=== PATIENT | male | born 1965 | race Caucasian/White ===

== ENCOUNTER 2025-03-04 10:00 | Emergency (ER) | payer BC, SELFPAY ==
[2025-03-04 10:03] VITALS: BP 140/85; PULSE 65; TEMP 36.6; O2SAT 95; BMI 28.6
[2025-03-04 10:10] VITALS: O2SAT 95
[2025-03-04] MEDS: SILVER NITRATE APPLICATOR STICK 1 APPLIC TOPICAL (10:18)
--- NOTE | 2025-03-04 10:35 | ED.GENADUL1 ---
HPI HPI - General Adult General Chief complaint: Epistaxis Stated complaint: EPISTAXIS Time Seen by Provider: 03/04/25 10:06 Source: patient Mode of arrival: walk-in Limitations: no limitations History of Present Illness HPI narrative: 59-year-old male presents to the emergency department for nosebleed. It started an hour and a half ago and was not precipitated by trauma and is only on the left side. He put a napkin in there and it seems to have slowed down or stopped. He is on a blood thinner, does not know which one. He does not know his medications. Related Data Home Medications ?Medication ?Instructions ?Recorded ?Confirmed albuterol sulfate 90 mcg/actuation 2 puff inhalation Q6H PRN 03/04/25 03/04/25 aerosol inhaler shortness of breath or wheezing aspirin 81 mg tablet,delayed 81 mg PO DAILY 03/04/25 03/04/25 release atorvastatin 80 mg tablet 80 mg PO QPM 03/04/25 03/04/25 carvedilol 3.125 mg tablet 3.125 mg PO BID 03/04/25 03/04/25 clopidogrel 75 mg tablet 75 mg PO DAILY 03/04/25 03/04/25 hydralazine 25 mg tablet 25 mg PO BID 03/04/25 03/04/25 ipratropium 20 mcg-albuterol 100 2 puff inhalation Q6H PRN 03/04/25 03/04/25 mcg/actuation mist for inhalation shortness of breath or wheezing (Combivent Respimat) isosorbide mononitrate 30 mg 30 mg PO DAILY 03/04/25 03/04/25 tablet,extended release 24 hr nifedipine 60 mg tablet,extended 60 mg PO DAILY 03/04/25 03/04/25 release 24 hr pantoprazole 40 mg tablet,delayed 40 mg PO DAILY 03/04/25 03/04/25 release sacubitril 24 mg-valsartan 26 mg 1 tab PO BID 03/04/25 03/04/25 tablet (Entresto) spironolactone 25 mg tablet 12.5 mg PO DAILY 03/04/25 03/04/25 tiotropium bromide 2.5 2 puff inhalation DAILY 03/04/25 03/04/25 mcg/actuation mist for inhalation (Spiriva Respimat) Allergies Allergy/AdvReac Type Severity Reaction Status Date / Time No Known Drug Allergies Allergy Verified 03/04/25 10:02 Review of Systems ROS Narrative A ten point review of systems is negative except as noted above. PFSH PFSH Medical History (Updated 03/04/25 @ 10:55 by Tj Chong MD) CHF (congestive heart failure) ?I50.9 - Heart failure, unspecified (ICD-10) Epistaxis ?R04.0 - Epistaxis (ICD-10) Myocardial infarct ?I21.9 - Acute myocardial infarction, unspecified (ICD-10) GERD (gastroesophageal reflux disease) ?K21.9 - Gastro-esophageal reflux disease without esophagitis (ICD-10) Emphysema lung ?J43.9 - Emphysema, unspecified (ICD-10) COPD (chronic obstructive pulmonary disease) ?J44.9 - Chronic obstructive pulmonary disease, unspecified (ICD-10) Surgical History (Updated 03/04/25 @ 10:14 by Jess Smith) H/O heart artery stent ?Z95.5 - Presence of coronary angioplasty implant and graft (ICD-10) Social History Little interest or pleasure in doing things: not at all Feeling down, depressed, or hopeless: not at all Exam Narrative Exam Narrative: Nurses note and vital signs reviewed and patient is not hypoxic. General: The patient appears well and in no apparent distress. Patient is resting comfortably on cart. Skin: Warm, dry, no pallor noted. There is no rash noted. Head: Normocephalic, atraumatic Eye: Normal conjunctiva, no drainage Ears, Nose, Mouth, and Throat: oral mucosa is moist. Nares patent. No current epistaxis. There is some blood in the left nares. Cardiovascular: Regular Rate and Rhythm Respiratory: Patient is in no distress, no accessory muscle use, lungs are clear to auscultation, no wheezing, rales or rhonchi Back: non-tender GI: Soft and nontender Musculoskeletal: All joints have full range of motion Neurological: A&O, normal speech Psychiatric: Cooperative Constitutional Vital Signs, click to edit/add: Last Vital Signs Temp 97.8 F 03/04/25 10:03 Pulse 65 03/04/25 10:03 Resp 20 03/04/25 10:03 BP 140/85 03/04/25 10:03 Pulse Ox 95 03/04/25 10:10 O2 Del Method Room Air 03/04/25 10:10 Course Vital Signs Vital signs: Vital Signs Temperature 97.8 F 03/04/25 10:03 Pulse Rate 65 03/04/25 10:03 Respiratory Rate 20 03/04/25 10:03 Blood Pressure 140/85 03/04/25 10:03 Pulse Oximetry 95 03/04/25 10:03 Oxygen Delivery Method Room Air 03/04/25 10:03 Temperature 97.8 F 03/04/25 10:03 Pulse Rate 65 03/04/25 10:03 Respiratory Rate 20 03/04/25 10:03 Blood Pressure 140/85 03/04/25 10:03 Pulse Oximetry 95 03/04/25 10:10 Oxygen Delivery Method Room Air 03/04/25 10:10 Medical Decision Making MDM Narrative Medical decision making narrative: The following procedure was performed by me. Left nares cauterization with silver nitrate was carried out with no complications. He tolerated the procedure well. No further bleeding occurred and he is able to be discharged home. Treatment diagnosis and follow-up were discussed with the patient. Discharge Plan Discharge Chief Complaint: Epistaxis Clinical Impression: Epistaxis Patient Disposition: Home, Self-Care Time of Disposition Decision: 10:55 Condition: Good Mode of Transportation: Private Vehicle Prescriptions / Home Meds: No Action albuterol sulfate 90 mcg/actuation HFA aerosol inhaler 2 puff INHALATION Q6H PRN (Reason: shortness of breath or wheezing) aspirin 81 mg tablet,delayed release (DR/EC) 81 mg PO DAILY atorvastatin 80 mg tablet 80 mg PO QPM carvedilol 3.125 mg tablet 3.125 mg PO BID clopidogrel 75 mg tablet 75 mg PO DAILY hydralazine 25 mg tablet 25 mg PO BID Combivent Respimat 20-100 mcg/actuation mist 2 puff INHALATION Q6H PRN (Reason: shortness of breath or wheezing) isosorbide mononitrate 30 mg tablet extended release 24 hr 30 mg PO DAILY nifedipine 60 mg tablet extended release 24hr 60 mg PO DAILY pantoprazole 40 mg tablet,delayed release (DR/EC) 40 mg PO DAILY Entresto 24-26 mg tablet 1 tab PO BID spironolactone 25 mg tablet 12.5 mg PO DAILY Spiriva Respimat 2.5 mcg/actuation mist 2 puff INHALATION DAILY Print Language: Ukrainian Instructions: Nosebleed (ED) Referrals: RUPERT MARSHALL [Primary Care Provider, Family Practice] - 1 week
== END 2025-03-04 11:43 | disposition home or self-care (01) ==
PROVIDERS: Emergency Provider Emergency Medicine; PCP Family Medicine
DX: R04.0 Epistaxis (principal); Z95.5 Presence of coronary angioplasty implant and graft
CPT/HCPCS: 30901; 99283

== ENCOUNTER 2025-03-07 09:05 | Emergency (ER) | payer BC, SELFPAY ==
--- OUTSIDE RECORDS SUMMARY | 2025-02-19 21:46 | XMS_ITS | Encounter Summary ---
Author Organization [facility] Address [address] [place] [address] Phone Care Team Providers Care Bell Spinner Sousaphones Name Role Phone Winston Paul DO Primary Care Provider [phone] Reason for Referral * Medications - Pending Review Specialty Diagnoses / Procedures Referred By Carline silveira Referred To Contact Diagnoses Chronic systolic heart failure Lizbet Aguirre MD [address] [place] [address] Phone: tel: fax: Referral ID Status Reason Start Date Expiration Date V isits Requested Visits Authorized [id number] Pending Review 1 Reason for Visit * Reason Comments Shortness of Breath Haven't felt right s feli I got the heart stent a month ago. I saw my doctor and went to the ER in [place], they wanted me to stay but I said no, I wanted a second opinion. They said my oxygen was only 81 or 82%. * Auth/Cert Specialty Diagnoses / Procedures Referred By Contpia t Referred To Contact Diagnoses Acute hypoxic respiratory failure Procedures ER ADMIT Loi Golden MD [address] [place] [address] Phone: tel: fax: [facility] Emergency Medicine [address] [place] [address] Phone: tel: fax: Referral ID Status Reason Start Date Expiration Date Visits Re quested Visits Authorized [id number] 1 1 Encounter Details Date Type Department Care Team (Late st Contact Info) Description 02/19/2025 9:46 PM EDT - 02/21/2025 4:35 PM EDT Hospital Encounter [facility] 8 Cardiac Intensive Care [address] [place] [phone] [place] [id number] [address] Department [place] [address] Loi Golden MD [address], [place] [id number] Lizbet Aguirre MD [address], [place] [id number] Acute hypoxic respiratory failure (Primary Dx); Hypoxia; Dyspnea, unspecified type; Chronic systolic heart failure; Coronary artery disease with history of percutaneous transluminal angioplasty (PTCA); Chronic obstructive pulmonary disease, unspecified COPD type (Multi) Discharge Disposition: Home Social History Tobacco Use Types Packs/Day Years Used Date Smoking Tobacco: Never Assessed AUDIT-C Answer Date Recorded Q1: How often do you have a drink containing alcohol? Never 02/20/2025 Q2: How many drinks containi ng alcohol do you have on a typical day when you are drinking? Patient does not drink Q3: How often do you have si x or more drinks on one occasion? Never 02/20/2025 PHQ-2 Answer Date Recorded Patient Health Questionnaire-2 Score 0 02/20/2025 Sex and Gender Information Value Date Recorded Sex Assigned at Not on file Legal Sex Male 9:07 PM EST Gender Identity Not on file Sexual Orientation Not on file documented as of this encounter Last Filed Vital Signs Vital Sign Reading Time Taken Comments Blood Pressure 137/75 02/21/2025 11:03 AM EDT Pulse 54 02/21/2025 11:03 AM EDT Temperature 36.1 C (97 F) 02/21/2025 11:03 AM EDT Respiratory Rate 18 02/21/2025 11:0 3 AM EDT Oxygen Saturation 94% 02/21/2025 1:04 PM EDT Inhaled Oxygen Concentration - - Weight 88.4 kg (194 lb 14.2 oz) 02/21/2025 7:00 AM EDT Height 180.3 cm (5' 11 ) 02/20/2025 2:14 AM EDT Body Mass Index 27.18 02/20/2025 2:14 AM EDT documented in this encounter Functional Status * Audit-C Score Answer Date of Assessment Author 0 02/20/2025 2:29 AM EDT Summer Denise RN * Question Answer Date of Assessment Author Q1: How often do you have a drink containing alcohol? Never 02/20/2025 2:29 AM EDT Summer Denise RN Q2: How many drinks containing alcohol do you have on a typical day when you are drinking? Patient does not drink 02/20/2025 2:29 AM EDT Summer Denise RN Q3: How often do you have six or more drinks on one occasion? Never 02/20/2025 2:29 AM EDT Summer Denise RN * Over the past 2 weeks, how often have you been bothered by any of the following problems? Question Answer Date of Assessment Author Patient Health Questionnaire -2 Score 0 02/20/2025 2:29 AM BINGT Summer Denise RN * Calculated C-SSRS Risk Score (Lifetime/Recent) Answer Date of Assessment Author No Risk Indicated 02/19/2025 9:34 PM EDT Nuvia Lara RN * [place] Suicide Severity Rating Scale (Screener/Recent Self-Report) Question Answer Date of Assessment Author 1. Wish to be (Past 1 Month) No 02/19/2025 9:34 PM BINGT Ismael Wyatt RN 2. Non-Specific Active Suici sejal Thoughts (Past 1 Month) No 02/19/2025 9:34 PM BINGT Shani Wyatt RN 6. 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 carvedilol 3.125 mg tablet; Commonly known as: Coreg; Take 1 tablet (3.125 mg) by mouth 2 times a day. clopidogrel 75 mg tablet; Commonly known as: Plavix; Take 1 tablet (75 mg) by mouth once daily.; Start taking on: February 22, 2025 empagliflozin 10 mg tablet; Commonly known as: Jardiance; Take 1 tablet (10 mg) by mouth once daily.; Start taking on: February 22, 2025 ipratropium-albuteroL 20-100 mcg/actuation inhaler; Commonly known as: Combivent Respimat; Inhale 2 puffs 4 times a day as needed for wheezing. sacubitriL-valsartan 24-26 mg tablet; Commonly known as: Entresto; Take 1 tablet by mouth 2 times a day. spironolactone 25 mg tablet; Commonly known as: Aldactone; Take 0.5 tablets (12.5 mg) by mouth once daily.; Start taking on: February 22, 2025 tiotropium 2.5 mcg/actuation inhaler; Commonly known as: Spiriva Respimat; Inhale 2 puffs once daily.; Start taking on: February 22, 2025 Test Results Pending At Discharge Pending Labs Order Current Status Extra Tubes Preliminary result Light Blue Top Preliminary result Hospital Course 59 y.o. 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 #. Acute hypoxic respiratory failure #. COPD #. Lactic acidosis Seen and examined Clinically better No SOB No chest pain Seen by Cardiology Seen by Pulmonary Home O2 eval Ok from cardiology to DC Entresto BID PO Aldactone Po daily Jardiance daily PO Albuterol Inhaler Medrol Dose pack at DC Follow up with Pulmonary as outpatient #. Chronic combined systolic and diastolic heart failure, NYHA Class II - Echo at [facility] reportedly showed EF 45% and grade I diastolic impairment, however clinically does not appear floridly volume overloaded, additionally no signs of volume overload on CT - Likely Class II - III NYHA given limited physical activity resulting in DILLON and fatigue Entresto BID PO Aldactone Po daily Jardiance daily PO #. CAD s/p PTCA #. Essential hypertension - Recent PCI to mid LAD (12/2024), no reported chest pain, EKG does show ST-T changes in inferior, anterior, and inferior leads - Continuing home aspirin, Plavix, atorvastatin, coreg #. CKD stage IIIa - Unclear baseline but appears to be improved from labs at [facility] - Monitor #. Type 2 diabetes with hyperglycemia Resume home metformin - Check A1C - SSI, Accu-Cheks, hypoglycemic protocol #. Thrombocytopenia - Reportedly chronic per limited chart review - Outpatient follow up VTE PPX: Lovenox/SCDs Pertinent Physical Exam At Time of Discharge Physical Exam Vitals and nursing note reviewed. Constitutional: Appearance: Normal appearance. HENT: Head: Normocephalic and atraumatic. Mouth/Throat: Mouth: Mucous membranes are dry. Eyes: Extraocular Movements: Extraocular movements intact. Pupils: Pupils are equal, round, and reactive to light. Cardiovascular: Rate and Rhythm: Normal rate and regular rhythm. Pulses: Normal pulses. Heart sounds: Normal heart sounds. Pulmonary: Effort: Pulmonary effort is normal. Breath sounds: Normal breath sounds. Abdominal: General: Abdomen is flat. Bowel sounds are normal. Palpations: Abdomen is soft. Musculoskeletal: General: Normal range of motion. Cervical back: Normal range of motion and neck supple. Skin: General: Skin is warm. Neurological: General: No focal deficit present. Mental Status: He is alert and oriented to person, place, and time. Mental status is at baseline. Psychiatric: Mood and Affect: Mood normal. Behavior: Behavior normal. Outpatient Follow-Up No future appointments. Discharge time >30 min Lizbet Aguirre MD documented in this encounter Medications at Time of Discharge acetaminophen (Tylenol) 325 mg tablet Take 2 tablets (650 mg) by mouth every 4 hours if needed. 01/13/2025 aspirin 81 mg EC tablet Take 1 tablet (81 mg) by mouth once daily. 01/13/2025 atorvastatin (Lipitor) 80 mg tablet Take 1 tablet (80 mg) by mouth once daily. 01/13/2025 clopidogrel (Plavix) 75 mg tablet Take 1 tablet (75 mg) by mouth once daily. 01/13/2025 isosorbide mononitrate ER (Imdur) 30 mg 24 hr tablet Take 1 tablet (30 mg) by mouth once daily. 01/13/2025 nicotine (Nicoderm CQ) 21 mg/[address] 21 mg on the skin once every 24 hours. 01/13/2025 pantoprazole (ProtoNix) 40 mg EC tablet Take 1 tablet (40 mg) by mouth once daily in the morning. Take before meals. 01/13/2025 aspirin 81 mg EC tabletIndications: Coronary artery disease with history of percutaneous transluminal angioplasty (PTCA) Take 1 tablet (81 mg) by mouth once daily. 30 tablet 1 02/22/2025 5 atorvastatin (Lipitor) 80 mg tabletIndications: Coronary artery disease with history of percutaneous transluminal angioplasty (PTCA) Take 1 tablet (80 mg) by mouth once daily at bedtime. 30 tablet 1 02/21/2025 5 carvedilol (Coreg) 3.125 mg tabletIndications: Coronary artery disease with history of percutaneous transluminal angioplasty (PTCA) Take 1 tablet (3.125 mg) by mouth 2 times a day. 60 tablet 1 02/21/2025 5 clopidogrel (Plavix) 75 mg tabletIndications: Coronary artery disease with history of percutaneous transluminal angioplasty (PTCA) Take 1 tablet (75 mg) by mouth once daily. 30 tablet 1 02/22/2025 5 empagliflozin (Jardiance) 10 mg tabletIndications: Chronic systolic heart failure Take 1 tablet (10 mg) by mouth once daily. 30 tablet 1 02/22/2025 5 ipratropium-albute roL (Combivent Respimat) 20-100 mcg/actuation inhalerIndications :Chronic obstructive pulmonary disease, unspecified COPD type (Multi) Inhale 2 puffs 4 times a day as needed for wheezing. 1 g 3 02/21/2025 sacubitriL-valsart an (Entresto) 24-26 mg tabletIndications: Chronic systolic heart failure Take 1 tablet by mouth 2 times a day. 60 tablet 1 02/21/2025 5 spironolactone (Aldactone) 25 mg tabletIndications: Chronic systolic heart failure Take 0.5 tablets (12.5 mg) by mouth once daily. 15 tablet 1 02/22/2025 5 tiotropium (Spiriva Respimat) 2.5 mcg/actuation inhalerIndications :Chronic obstructive pulmonary disease, unspecified COPD type (Multi) Inhale 2 puffs once daily. 8 g 11 02/22/2025 documented as of this encounter Progress Notes * Mkye Leggett MD - 02/21/2025 1:17 PM EDT David Tapia is a 59 y.o. male on day 1 of admission presenting with Acute hypoxic respiratory failure. Subjective:-Recent events noted. Patient feeling better. Agrees to go home today. Did not qualify for home O2 with room air pulse ox 98% on rest. Continuous 3 L nasal cannula. Physical Exam:- Vitals Vitals: 02/20/25 2244 02/21/25 0400 02/21/25 0700 02/21/25 0714 BP: (!) 177/95 180/86 145/73 BP Location: Left arm Left arm Patient Position: Lying Lying Pulse: 53 59 (!) 48 Resp: 18 18 Temp: 36.2 ??C (97.2 ??F) 35.9 ??C (96.6 ??F) 36 ??C (96.8 ??F) TempSrc: Temporal Temporal SpO2: 96% 96% 94% Weight: 88.4 kg (194 lb 14.2 oz) Height: Intake/Output Summary (Last 24 hours) at 02/21/2025 0853 Last data filed at 02/21/2025 0400 Gross per 24 hour Intake -- Output 3400 ml Net -3400 ml Wt Readings from Last 4 Encounters: 02/21/25 88.4 kg (194 lb 14.2 oz) GENERAL APPEARANCE: Well developed, well nourished, in no acute distress. CHEST: Symmetric and non-tender. INTEGUMENT: Skin warm and dry, without gross excoriationis or lesions. HEENT: No gross abnormalities of conjunctiva, teeth, gums, oral mucosa NECK: Supple, no JVD, no bruit. Thyroid not palpable. Carotid upstrokes normal. NEURO/PSHCY: Alert and oriented x3; appropriate behavior and responses and responses, grossly normal cerebellar function with normal balance and coordination LUNGS: Few scattered expiratory wheezes; normal respiratory effort. HEART: Rate and rhythm regular with no evident murmur; no gallop appreciated. There are no rubs, clicks or heaves. PMI nondisplaced. ABDOMEN: Soft, nontender, no palpable hepatosplenomegaly, no mases, no bruits. Abdominal aorta not noted to be enlarged. MUSCULOSKELETAL: Ambulatory with normal tandem gait. EXTREMITIES: Warm with good color, no clubbing or cyanois. There is no edema noted. PERIPHERAL VASCULAR: Pulses present and equally palpable; 2+ throughout. No femoral bruits. Lab:- CBC: Lab Results Component Value Date WBC 6.0 02/20/2025 RBC 4.29 (L) 02/20/2025 HGB 13.2 (L) 02/20/2025 HCT 39.2 (L) 02/20/2025 PLT 109 (L) 02/20/2025 CMP: Lab Results Component Value Date NA 140 02/20/2025 K 4.0 02/20/2025 CL 110 (H) 02/20/2025 CO2 24 02/20/2025 BUN 30 (H) 02/20/2025 CREATININE 1.41 (H) 02/20/2025 GLUCOSE 222 (H) 02/20/2025 CALCIUM 9.1 02/20/2025 BMP: Lab Results Component Value Date NA 140 02/20/2025 NA 141 02/19/2025 K 4.0 02/20/2025 K 4.1 02/19/2025 CL 110 (H) 02/20/2025 CL 111 (H) 02/19/2025 CO2 24 02/20/2025 CO2 22 02/19/2025 BUN 30 (H) 02/20/2025 BUN 35 (H) 02/19/2025 CREATININE 1.41 (H) 02/20/2025 CREATININE 1.51 (H) 02/19/2025 CBC: Lab Results Component Value Date WBC 6.0 02/20/2025 WBC 7.8 02/19/2025 RBC 4.29 (L) 02/20/2025 RBC 4.31 (L) 02/19/2025 HGB 13.2 (L) 02/20/2025 HGB 13.3 (L) 02/19/2025 HCT 39.2 (L) 02/20/2025 HCT 39.1 (L) 02/19/2025 MCV 91 02/20/2025 MCV 91 02/19/2025 MCH 30.8 02/20/2025 MCH 30.9 02/19/2025 MCHC 33.7 02/20/2025 MCHC 34.0 02/19/2025 RDW 17.2 (H) 02/20/2025 RDW 16.6 (H) 02/19/2025 PLT 109 (L) 02/20/2025 PLT 113 (L) 02/19/2025 Hepatic Function Panel: Lab Results Component Value Date ALKPHOS 126 02/19/2025 ALT 20 02/19/2025 AST 13 02/19/2025 PROT 6.3 (L) 02/19/2025 BILITOT 1.1 02/19/2025 Magnesium: Lab Results Component Value Date MG 1.93 02/19/2025 Cardiac Enzymes: Lab Results Component Value Date TROPHS 8 02/19/2025 TROPHS 9 02/19/2025 BNP: Lab Results Component Value Date BNP 240 (H) 02/19/2025 ECG 12 lead Result Date: 02/20/2025 Sinus rhythm with Premature supraventricular complexes Incomplete right bundle branch block Possible Right ventricular hypertrophy Cannot rule out Inferior infarct , age undetermined ST & T wave abnormality, consider anterolateral ischemia Abnormal ECG When compared with ECG of 19-FEB-2025 21:37, (unconfirmed) Premature supraventricular complexes are now Present See ED provider note for full interpretation and clinical correlation Radiology CT angio chest for pulmonary embolism Final Result No pulmonary embolism or acute cardiopulmonary process. Mild bibasilar dependent atelectasis. Mild emphysema. MACRO: None Signed by: Divina Jacob 02/20/2025 12:45 AM Dictation workstation: [id number] Transthoracic Echo Complete (Results Pending) Patient Active Problem List Diagnosis Acute hypoxic respiratory failure; Likely due to underlying COPD. Doubt CHF/PE/pneumonia/pleural effusion. Small amount of atelectasis may be contributing also. CHF (congestive heart failure), NYHA class II, chronic, combined COPD (chronic obstructive pulmonary disease) (Multi); Clinically appears to be moderate but only mild by CT chest. Coronary artery disease with history of percutaneous transluminal angioplasty (PTCA) Essential hypertension Lactic acidosis Stage 3a chronic kidney disease (Multi) Thrombocytopenia Type 2 diabetes mellitus with hyperglycemia, without long-term current use of insulin * (Principal) Acute hypoxic respiratory failure - Primary Other Visit Diagnoses Hypoxia Dyspnea, unspecified type Chronic systolic heart failure Relevant Medications clopidogrel (Plavix) tablet 75 mg carvedilol (Coreg) tablet 6.25 mg isosorbide mononitrate ER (Imdur) 24 hr tablet 30 mg sacubitriL-valsartan (Entresto) 24-26 mg per tablet 1 tablet Other Relevant Orders Transthoracic Echo Complete Pulmonary comments: Patient has been strongly counseled to quit smoking and offered nicotine patch.Patient qualifies for discharge 3 L nasal cannula nightly and with daytime exertion. Patient advised to buy a pulse ox device. For COPD and needs to stay quit smoking using nicotine patch, close respiratory virus currently 2.5 mcg, p.o. every morning and generic DuoNebs 6 every 6 as needed/albuterol MDI 2 puffs every 4 as needed. Agree with prednisone taper for COPD exacerbation. Will follow-up in the office in a week. Patient advised to stay off work until he sees me. 11. I spent 25 Asbell's visit for review minutes in the professional and overall care of this patient. Myke Leggett MD * Diana Ledesma, ADJUSTER LEADER - 02/21/2025 12:30 PM EDT Images from the original note were not included. Date/Time SpO2 Medical Gas Therapy Medical Gas Delivery Method Oxygen L/min Patient is on During the Study Patient Activity During Study 02/21/25 11:03:48 93 % -- -- -- -- 02/21/25 1200 88 % None (Room air) -- -- At rest 02/21/25 1205 93 % Supplemental oxygen Nasal cannula 3 L/min At rest 02/21/25 1210 94 % Supplemental oxygen Nasal cannula 3 L/min Ambulating Was a Home Oxygen Evaluation Performed? Yes Based on the Home Oxygen Evaluation, Does the Patient Qualify for Home Oxygen Therapy? Yes Recommendations: Recommended Oxygen Dose at Rest is 3 L/min Recommended Oxygen Dose with Activity is 3 L/min * Diana Ledesma CRT - 02/21/2025 12:20 PM EDT Images from the original note were not included. Date/Time SpO2 Medical Gas Therapy Medical Gas Delivery Method Oxygen L/min Patient is on During the Study Patient Activity During Study 02/21/25 11:03:48 93 % -- -- -- -- 02/21/25 1200 88 % None (Room air) -- -- At rest 02/21/25 1205 93 % Supplemental oxygen Nasal cannula 3 L/min At rest 02/21/25 1210 94 % Supplemental oxygen Nasal cannula 3 L/min Ambulating Was a Home Oxygen Evaluation Performed? Yes Based on the Home Oxygen Evaluation, Does the Patient Qualify for Home Oxygen Therapy? Yes Recommendations: Recommended Oxygen Dose at Rest is 3 L/min * Fabien Davidson MD - 02/21/2025 8:53 AM EDT Okay thanks [facility] Progress Note Rounding Wedding Decorator: Dr. Fabien Davidson Primary Wedding Decorator: Dr. Jaime Kasper ([facility]) Date: 02/21/2025 Patient: David Tapia Date of : 1965 Admit Date: 02/19/2025 SUBJECTIVE: David Tapia was seen and examined today at bedside. February 21, 2025: He denies any chest pain or shortness of breath. Overall states he feels much better. No acute overnight events. He responded very well to 20 mg of intravenous furosemide. Consult note HPI February 20, 2025: David Tapia is a 59 y.o. male patient who is being at the request of Dr. Lizbet Aguirrefor inpatient consultation of shortness of breath and acute hypoxic respiratory failure. He was admitted on 02/19/2025. He has a history of atherosclerotic heart disease with recent angioplasty and stenting of the LAD on January 12, 2025 at [facility]. He presented with complaints of worsening exertional chest pressure and shortness of breath. He has a history of chronic combined systolic and diastolic congestive heart failure. An echocardiogram showed an estimated LV ejection action 45%. He has a history of hypertension, type 2 diabetes mellitus, hyperlipidemia, tobacco abuse, stage III chronic kidney disease, and COPD. He presented to the emergency department yesterday with complaints of worsening shortness of breath over the past 3 weeks or so. He thought some of his symptoms were similar to those he had prior to the stent implant although he denies any associated chest pressure. He initially presented to another emergency department was noted to have oxygen saturations in the 80s. He wasadvised to be admitted however he left against medical advice and presented to the [facility] emergency[facility]artment for a second opinion. Upon arrival he was noted to have stable vital signs with exception of oxygen saturation is 88 to 92%. CBC normal with the exception of hemoglobin 13.3. WBC was 7.8. Comprehensive metabolic profile normal with exception of BUN 35 and creatinine 1.51. High-sensitivity troponin level 9 and 8. BNP level 240. Lactate 2.5. CT scan of the chest was negative for pulmonary embolism or acute pulmonary process. Mild basilar atelectasis and mild emphysema. EKG shows normal sinus rhythm with diffuse nonspecific ST-T wave changes. No ST elevation. In light of his symptoms of dyspnea and documented hypoxia he was admitted to telemetry with a diagnosis of acute hypoxic respiratory failure. He was noted to have very mild wheezing on exam. He did not appear to be volume overloaded. He was placed on intravenous Solu-Medrol and DuoNebs. Recent echocardiogram at [facility] showed an estimated LV ejection fraction 45%. Hydralazine, nifedipine, and Imdur were discontinued. He has been initiated on Entresto, Jardiance, and spironolactone. He has not been complaining of any chest discomfort. Patient states he currently is feeling quite a bit better. He denies any orthopnea, PND, or increasing peripheral edema. He denies any palpitations, lightheadedness, near-syncope, or syncope. He denies any fever, chills, or cough. He denies any nausea, vomiting, or diaphoresis. He denies any hemoptysis, hematemesis, melena, or hematochezia. VITALS: Vitals: 02/20/25 2244 02/21/25 0400 02/21/25 0700 02/21/25 0714 BP: (!) 177/95 180/86 145/73 BP Location: Left arm Left arm Patient Position: Lying Lying Pulse: 53 59 (!) 48 Resp: 18 18 Temp: 36.2 ??C (97.2 ??F) 35.9 ??C (96.6 ??F) 36 ??C (96.8 ??F) TempSrc: Temporal Temporal SpO2: 96% 96% 94% Weight: 88.4 kg (194 lb 14.2 oz) Height: Intake/Output Summary (Last 24 hours) at 02/21/2025 0853 Last data filed at 02/21/2025 0400 Gross per 24 hour Intake -- Output 3400 ml Net -3400 ml Wt Readings from Last 4 Encounters: 02/21/25 88.4 kg (194 lb 14.2 oz) CURRENT HOSPITAL MEDICATIONS: Scheduled Medications[1] Continuous Medications[2] No current outpatient medications PHYSICAL EXAMINATION: GENERAL: Well developed, well nourished, in no acute distress. CHEST: Symmetric and nontender. NEURO/PSYCH: Alert and oriented times three with approppriate behavior and responses. NECK: Supple, no JVD, no bruit. LUNGS: Clear to auscultation bilaterally, normal respiratory effort. HEART: Rate and rhythm regular with I/ NOAH LSB, no gallop appreciated. There are no rubs, clicks or heaves. EXTREMITIES: Warm with good color, no clubbing or cyanosis. There is no edema noted. PERIPHERAL VASCULAR: Pulses present and equally palpable; 2+ throughout. LAB DATA: CBC: Results from last 7 days Lab Units 02/21/25 0537 WBC AUTO x10*3/uL 9.2 RBC AUTO x10*6/uL 4.54 HEMOGLOBIN g/dL 14.0 HEMATOCRIT % 41.2 PLATELETS AUTO x10*3/uL 109* CMP: Results from last 7 days Lab Units 02/21/25 0537 SODIUM mmol/L 140 POTASSIUM mmol/L 4.0 CHLORIDE mmol/L 107 CO2 mmol/L 26 BUN mg/dL 30* CREATININE mg/dL 1.47* GLUCOSE mg/dL 147* CALCIUM mg/dL 9.2 Cardiac Enzymes: Lab Results Component Value Date TROPHS 8 02/19/2025 TROPHS 9 02/19/2025 Magnesium: Lab Results Component Value Date MG 1.93 02/19/2025 BNP: Lab Results Component Value Date BNP 240 (H) 02/19/2025 HgBA1c: Lab Results Component Value Date HGBA1C 7.7 (H) 02/19/2025 CBC: Lab Results Component Value Date WBC 9.2 02/21/2025 WBC 6.0 02/20/2025 WBC 7.8 02/19/2025 RBC 4.54 02/21/2025 RBC 4.29 (L) 02/20/2025 RBC 4.31 (L) 02/19/2025 HGB 14.0 02/21/2025 HGB 13.2 (L) 02/20/2025 HGB 13.3 (L) 02/19/2025 HCT 41.2 02/21/2025 HCT 39.2 (L) 02/20/2025 HCT 39.1 (L) 02/19/2025 MCV 91 02/21/2025 MCV 91 02/20/2025 MCV 91 02/19/2025 MCH 30.8 02/21/2025 MCH 30.8 02/20/2025 MCH 30.9 02/19/2025 MCHC 34.0 02/21/2025 MCHC 33.7 02/20/2025 MCHC 34.0 02/19/2025 RDW 16.6 (H) 02/21/2025 RDW 17.2 (H) 02/20/2025 RDW 16.6 (H) 02/19/2025 PLT 109 (L) 02/21/2025 PLT 109 (L) 02/20/2025 PLT 113 (L) 02/19/2025 BMP: Lab Results Component Value Date NA 140 02/21/2025 NA 140 02/20/2025 NA 141 02/19/2025 K 4.0 02/21/2025 K 4.0 02/20/2025 K 4.1 02/19/2025 CL 107 02/21/2025 CL 110 (H) 02/20/2025 CL 111 (H) 02/19/2025 CO2 26 02/21/2025 CO2 24 02/20/2025 CO2 22 02/19/2025 BUN 30 (H) 02/21/2025 BUN 30 (H) 02/20/2025 BUN 35 (H) 02/19/2025 CREATININE 1.47 (H) 02/21/2025 CREATININE 1.41 (H) 02/20/2025 CREATININE 1.51 (H) 02/19/2025 Hepatic Function Panel: Lab Results Component Value Date ALKPHOS 126 02/19/2025 ALT 20 02/19/2025 AST 13 02/19/2025 PROT 6.3 (L) 02/19/2025 BILITOT 1.1 02/19/2025 DIAGNOSTIC TESTING: Transthoracic Echo Complete Result Date: 02/20/2025 [place] [id number] TRANSTHORACIC ECHOCARDIOGRAM REPORT Patient Name: DAVID TAPIA [place] Physician: [id number] Fabien Davidson MD, [facility] CONCLUSIONS: 1. The left ventricular systolic function is normal with a visually estimated ejectionfraction of 65-70%. 2. No regional wall motion abnormalities. 3. Spectral Doppler shows a Grade I (impaired relaxation pattern) of left ventricular diastolic filling with normal left atrial filling pressure. 4. Hyperechoic myocardium. Conside possible infiltrative cardiomyopathy. 5. Right ventricular volume and pressure overload. 6. There is moderately reduced right ventricular systolic function.7. Severely enlarged right ventricle. 8. The right atrial size is moderate to severely dilated. 9. Mild mitral valve regurgitation. 10. Mild tricuspid regurgitation is visualized. 11. The Doppler estimated RVSP is mildly elevated at 40 mmHg. 12. The inferior vena cava appears moderately dilated, with IVC inspiratory collapse less than 50%. 13. Previous echocardiogram and [facility] 12/2024 reported an LVEF 45%. 14. A bubble study using agitated saline was performed. Bubble study is positive. A large PFO (> 20 bubbles) was demonstrated. QUANTITATIVE DATA SUMMARY: 2D MEASUREMENTS: Normal Ranges: Ao Root d: 3.45 cm (2.0-3.7cm) LAs: 4.22cm (2.7-4.0cm) RVIDd: 4.46 cm (0.9-3.6cm) IVSd: 1.22 cm (0.6-1.1cm) LVPWd: 1.13 cm (0.6-1.1cm) LVIDd: 3.16 cm (3.9-5.9cm) LVIDs: 2.14 cm LV Mass Index: 53.9 g/m2 LVEDV Index: 38.15 ml/m2 LV % FS 32.3% LEFT ATRIUM: Normal Ranges: LA Vol A4C: 21.3 ml (22+/-6mL/m2) LA Vol A2C: 31.8 ml LA Vol BP: 26.7ml LA Vol Index A4C: 10.1ml/m2 LA Vol Index A2C: 15.1 ml/m2 LA Vol Index BP: 12.7 ml/m2 LA Area A4C: 12.1 cm2 LA Area A2C: 14.4 cm2 LA Major Winston A4C: 5.8 cm LA Major Winston A2C: 5.5 cm RIGHT ATRIUM: Normal Ranges: RA Area A4C: 26.4 cm2 AORTA MEASUREMENTS: Normal Ranges: Asc Ao, d: 3.30 cm (2.1-3.4cm) LV SYSTOLIC FUNCTION: Normal Ranges: EF-A4C View: 69 % (>=55%) EF-A2C View: 63 % EF- Biplane: 66 % EF-Visual: 68 % LV EF Reported: 68 % LV DIASTOLIC FUNCTION: Normal Ranges: MV Peak E: 0.63 m/s (0.7-1.2 m/s) MV Peak A: 1.21 m/s (0.42-0.7 m/s) E/A Ratio: 0.52 (1.0-2.2) MV e' 0.062 m/s (>8.0)MV lateral e' 0.08 m/s MV medial e' 0.04 m/s E/e' Ratio: 10.15 (<8.0) PulmV Sys Boby: 54.10 cm/s PulmV Atkins Boby: 36.10 cm/s PulmV S/D Boby: 1.50 AORTIC VALVE: Normal Ranges: AoV Vmax: 1.64 m/s (<=1.7m/s) AoV Peak P.8 mmHg (<20mmHg) AoV Mean P.0 mmHg (1.7-11.5mmHg) LVOT Max Boby: 0.94 m/s (<=1.1m/s) AoV VTI: 34.60 cm (18-25cm) LVOT VTI: 21.90 cm LVOT Diameter: 2.04 cm (1.8-2.4cm) AoV Area, VTI: 2.07 cm2 (2.5-5.5cm2) AoV Area,Vmax: 1.88 cm2 (2.5-4.5cm2) AoV Dimensionless Index:0.63 RIGHT VENTRICLE: RV Basal 5.09 cm RV Mid 4.24 cm RV Major 8.8 cm TAPSE: 20.3 mm RV s' 0.10 m/s TRICUSPID VALVE/RVSP: Normal Ranges: Peak TR Velocity: 2.52 m/s Est. RA Pressure: 15 mmHg RV Syst Pressure: 40 mmHg (< 30mmHg) IVC Diam: 2.64 cm PULMONIC VALVE: Normal Ranges: PV Accel Time: 232 msec (>120ms) PV Max Boby: 0.8 m/s (0.6-0.9m/s) PV Max P.4 mmHg PULMONARY VEINS: PulmV Atkins Boby: 36.10 cm/s PulmV S/D Boby: 1.50 PulmV Sys Boby: 54.10 cm/s [id number] Fabien Davidson MD, FACC Electronically signed on 02/20/2025 at 1:57:28 PM ECG 12 lead Result Date: 02/20/2025 Sinus rhythm with Premature supraventricular complexes Incomplete right bundle branch block Possible Right ventricular hypertrophy Cannot rule out Inferior infarct , age undetermined ST & T wave abnormality, consider anterolateral ischemia Abnormal ECG When compared with ECG of 19-FEB-2025 21:37, (unconfirmed) Premature supraventricular complexes are now Present See ED provider note for full interpretation and clinical correlation RADIOLOGY: Transthoracic Echo Complete Final Result CT angio chest for pulmonary embolism Final Result No pulmonary embolism or acute cardiopulmonary process. Mild bibasilar dependent atelectasis. Mild emphysema. MACRO: None Signed by: Divina James 02/20/2025 12:45 AM Dictation workstation: [id number] PROBLEM LIST Problem List[3] ASSESSMENT: Problem List Items Addressed This Visit * (Principal) Acute hypoxic respiratory failure - Primary Other Visit Diagnoses Hypoxia Dyspnea, unspecified type Chronic systolic heart failure Relevant Medications clopidogrel (Plavix) tablet 75 mg isosorbide mononitrate ER (Imdur) 24 hr tablet 30 mg sacubitriL-valsartan (Entresto) 24-26 mg per tablet 1 tablet carvedilol (Coreg) tablet 3.125 mg (Start on 02/21/2025 9:00 PM) Other Relevant Orders Transthoracic Echo Complete (Completed) Atherosclerotic heart disease with recent angioplasty and stenting of the LAD at [facility] January 12, 2025.Patient presented with exertional chest pressure and shortness of breath. He denies any recurrent chest pressure with recent onset of dyspnea. Doubt acute stent thrombosis. Chronic heart failure with mildly reduced ejection fraction. No overt congestive heart failure. RV enlargement with moderate impairment of RV systolic function. Suspect probable cor pulmonale. COPD related to longstanding tobacco use. February 21, 2025: Patient states he is feeling somewhat better. He is vital signs are stable with exception of labileblood pressure readings. Some systolic readings as high as 180 mmHg. Oxygen saturation 94 to 96%. Heart rates predominantly in the 50s. Approximately 4 L negative fluid balance. His weight is decreased approximately 9 pounds since admission. CBC normal with exception of platelets 109. Sodium 140 with potassium 4.0, BUN 30, and creatinine 1.47. As noted CT scan of the chest was negative for pulmonary embolism or acute cardiopulmonary process. Most recent EKG February 19, 2025 shows normal sinus rhythm with diffuse ST-T wave changes. Echocardiogram completed on February 21, 2025 shows an estimated LV ej ection fraction of 65 to 70%. Hyperechoic myocardium suggesting possible infiltrative cardiomyopathy. Moderate impairment of RV systolic function with severe enlargement of the right ventricle. Mild mitral and tricuspid regurgitation with estimated RVSP 44 mmHg. Suspect RV dysfunction is secondary t o cor pulmonale. Pulmonary recommendations noted. Patient presented with acute hypoxic respiratory failure most likely primarily related to underlying COPD. His echocardiogram last month showed an estimated LV ejection fraction of 45%. He subsequently underwent angioplasty and stenting of the LAD. Agree with continuation of aspirin, Plavix, carvedilol, Jardiance, sacubitril, and spironolactone. Monitor renal function closely. Increase activity. Patient plans to follow-up with Dr. Kasper at [facility]. Please do not hesitate to call with questions. [1] aspirin, 81 mg, oral, Daily atorvastatin, 80 mg, oral, Nightly carvedilol, 6.25 mg, oral, BID clopidogrel, 75 mg, oral, Daily empagliflozin, 10 mg, oral, Daily enoxaparin, 40 mg, subcutaneous, q24h insulin lispro, 0-10 Units, subcutaneous, TID AC ipratropium-albuteroL, 3 mL, nebulization, q6h while awake [Held by provider] isosorbide mononitrate ER, 30 mg, oral, Daily oxygen, , inhalation, Continuous - Inhalation pantoprazole, 40 mg, oral, Daily polyethylene glycol, 17 g, oral, Daily sacubitriL-valsartan, 1 tablet, oral, BID spironolactone, 12.5 mg, oral, Daily tiotropium, 2 puff, inhalation, Daily [2] [3] Patient Active Problem List Diagnosis Acute hypoxic respiratory failure CHF (congestive heart failure), NYHA class II, chronic, combined COPD (chronic obstructive pulmonary disease) (Multi) Coronary artery disease with history of percutaneous transluminal angioplasty (PTCA) Essential hypertension Lactic acidosis Stage 3a chronic kidney disease (Multi) Thrombocytopenia Type 2 diabetes mellitus with hyperglycemia, without long-term current use of insulin * Myke Leggett MD - 02/20/2025 2:20 PM EDT David Tapia is a 59 y.o. male on day 0 of admission presenting with Acute hypoxic respiratory failure. Acute hypoxic respiratory failure David Tapia is a 59 y.o. male patient who is being at the request of Dr. Lizbet Aguirrefor inpatient consultation of shortness of breath/COPD. He was admitted on 02/19/2025. Previous [facility] records have been reviewed in detail. Appears to have had history of CAD with recent stenting of LAD in December 2024 at [facility]. Presents to the ER with chief complaint of worsening exertional chest pressure along with shortness of breath. He denied a significant cough or sputum production wheezing. He denied leg swelling, orthopnea or PND. He has history of chronic combined systolic/diastolic CHF with prior LVEF in the range of 45%. Other problems include DM2, hypertension, dyslipidemia, continued smoking, stage III CKD and recently diagnosed COPD. He thought his symptoms of shortness of breath and chest pressurewere related to recent stent placement and initially went to another ER and SpO2 was in his 80s. Hewas advised admission but left AMA and presented to our ER for a second opinion. In the emergency room, his vitals were stable his SpO2 was in the 88 to 92% range his CBC chemistries were unremarkable except for elevated BUN of 31 creatinine 1.51. Since troponin levels were 9 and 8 with BNP of 240. EKG shows normal sinus rhythm with diffuse nonspecific ST-T changes. He was admitted with diagnosis of acute respiratory failure without congestive heart failure. Given IV steroids and generic DuoNebs in the ER and feeling a lot better. He is being started on goal-directed medical therapy with Entresto Jardiance spironolactone. Since admission he has not had any chest discomfort. Patient lately smoking half a pack a day previously smoked 1 to 1-1/2 pack of cigarettes per day since teenage years. He was told on a prior admission he had COPD but he was not sent home on any bronchodilator inhalers. Over has had a PFT. Admission CT chest shows no evidence of PE mild emphysema and left lower lobe atelectasis. Allergies No Known Allergis Past Medical History History reviewed. No pertinent past medical history. Past Surgical History History reviewed. No pertinent surgical history. Social history:-Lives at home. Daughter lives close by. Has history of smoking as noted No family history on file. Home medications:- aspirin, 81 mg, oral, Daily atorvastatin, 80 mg, oral, Nightly carvedilol, 6.25 mg, oral, BID clopidogrel, 75 mg, oral, Daily empagliflozin, 10 mg, oral, Daily enoxaparin, 40 mg, subcutaneous, q24h insulin lispro, 0-10 Units, subcutaneous, TID AC ipratropium-albuteroL, 3 mL, nebulization, q6h while awake [Held by provider] isosorbide mononitrate ER, 30 mg, oral, Daily oxygen, , inhalation, Continuous - Inhalation pantoprazole, 40 mg, oral, Daily polyethylene glycol, 17 g, oral, Daily sacubitriL-valsartan, 1 tablet, oral, BID spironolactone, 12.5 mg, oral, Daily [Continuous Medications] [Continuous Medications] No current outpatient medications ROS 12 point review of systems was obtained in detail and is negative other than that detailed above. Vitals: 02/20/25 0213 02/20/25 0214 02/20/25 0642 02/20/25 0749 BP: 129/73 140/76 BP Location: Right arm Right arm Patient Position: Lying Lying Pulse: 61 61 Resp: 18 18 Temp: 35.1 ??C (95.2 ??F) 35.5 ??C (95.9 ??F) TempSrc: Temporal Temporal SpO2: 91% 93% 91% 94% Weight: 90.6 kg (199 lb 11.8 oz) Height: 1.803 m (5' 11 ) Intake/Output Summary (Last 24 hours) at 02/20/2025 0946 Last data filed at 02/20/2025 0751 Gross per 24 hour Intake 60 ml Output 550 ml Net -490 ml Wt Readings from Last 4 Encounters: 02/20/25 90.6 kg (199 lb 11.8 oz) Physical Exam:- GENERAL APPEARANCE: Well developed, well nourished, in no acute distress. CHEST: Symmetric and non-tender. INTEGUMENT: Skin warm and dry, without gross excoriationis or lesions. HEENT: No gross abnormalities of conjunctiva, teeth, gums, oral mucosa NECK: Supple, no JVD, no bruit. Thyroid not palpable. Carotid upstrokes normal. NEURO/PSHCY: Alert and oriented x3; appropriate behavior and responses and responses, grossly normal cerebellar function with normal balance and coordination LUNGS: Few scattered expiratory wheezes; normal respiratory effort. HEART: Rate and rhythm regular with no evident murmur; no gallop appreciated. There are no rubs, clicks or heaves. PMI nondisplaced. ABDOMEN: Soft, nontender, no palpable hepatosplenomegaly, no mases, no bruits. Abdominal aorta not noted to be enlarged. MUSCULOSKELETAL: Ambulatory with normal tandem gait. EXTREMITIES: Warm with good color, no clubbing or cyanois. There is no edema noted. PERIPHERAL VASCULAR: Pulses present and equally palpable; 2+ throughout. No femoral bruits. Lab:- CBC: Lab Results Component Value Date WBC 6.0 02/20/2025 RBC 4.29 (L) 02/20/2025 HGB 13.2 (L) 02/20/2025 HCT 39.2 (L) 02/20/2025 PLT 109 (L) 02/20/2025 CMP: Lab Results Component Value Date NA 140 02/20/2025 K 4.0 02/20/2025 CL 110 (H) 02/20/2025 CO2 24 02/20/2025 BUN 30 (H) 02/20/2025 CREATININE 1.41 (H) 02/20/2025 GLUCOSE 222 (H) 02/20/2025 CALCIUM 9.1 02/20/2025 BMP: Lab Results Component Value Date NA 140 02/20/2025 NA 141 02/19/2025 K 4.0 02/20/2025 K 4.1 02/19/2025 CL 110 (H) 02/20/2025 CL 111 (H) 02/19/2025 CO2 24 02/20/2025 CO2 22 02/19/2025 BUN 30 (H) 02/20/2025 BUN 35 (H) 02/19/2025 CREATININE 1.41 (H) 02/20/2025 CREATININE 1.51 (H) 02/19/2025 CBC: Lab Results Component Value Date WBC 6.0 02/20/2025 WBC 7.8 02/19/2025 RBC 4.29 (L) 02/20/2025 RBC 4.31 (L) 02/19/2025 HGB 13.2 (L) 02/20/2025 HGB 13.3 (L) 02/19/2025 HCT 39.2 (L) 02/20/2025 HCT 39.1 (L) 02/19/2025 MCV 91 02/20/2025 MCV 91 02/19/2025 MCH 30.8 02/20/2025 MCH 30.9 02/19/2025 MCHC 33.7 02/20/2025 MCHC 34.0 02/19/2025 RDW 17.2 (H) 02/20/2025 RDW 16.6 (H) 02/19/2025 PLT 109 (L) 02/20/2025 PLT 113 (L) 02/19/2025 Hepatic Function Panel: Lab Results Component Value Date ALKPHOS 126 02/19/2025 ALT 20 02/19/2025 AST 13 02/19/2025 PROT 6.3 (L) 02/19/2025 BILITOT 1.1 02/19/2025 Magnesium: Lab Results Component Value Date MG 1.93 02/19/2025 Cardiac Enzymes: Lab Results Component Value Date TROPHS 8 02/19/2025 TROPHS 9 02/19/2025 BNP: Lab Results Component Value Date BNP 240 (H) 02/19/2025 ECG 12 lead Result Date: 02/20/2025 Sinus rhythm with Premature supraventricular complexes Incomplete right bundle branch block Possible Right ventricular hypertrophy Cannot rule out Inferior infarct , age undetermined ST & T wave abnormality, consider anterolateral ischemia Abnormal ECG When compared with ECG of 19-FEB-2025 21:37, (unconfirmed) Premature supraventricular complexes are now Present See ED provider note for full interpretation and clinical correlation Radiology CT angio chest for pulmonary embolism Final Result No pulmonary embolism or acute cardiopulmonary process. Mild bibasilar dependent atelectasis. Mild emphysema. MACRO: None Signed by: Divina James 02/20/2025 12:45 AM Dictation workstation: [id number] Transthoracic Echo Complete (Results Pending) Patient Active Problem List Diagnosis Acute hypoxic respiratory failure; Likely due to underlying COPD. Doubt CHF/PE/pneumonia/pleural effusion. Small amount of atelectasis may be contributing also. CHF (congestive heart failure), NYHA class II, chronic, combined COPD (chronic obstructive pulmonary disease) (Multi); Clinically appears to be moderate but only mild by CT chest. Coronary artery disease with history of percutaneous transluminal angioplasty (PTCA) Essential hypertension Lactic acidosis Stage 3a chronic kidney disease (Multi) Thrombocytopenia Type 2 diabetes mellitus with hyperglycemia, without long-term current use of insulin * (Principal) Acute hypoxic respiratory failure - Primary Other Visit Diagnoses Hypoxia Dyspnea, unspecified type Chronic systolic heart failure Relevant Medications clopidogrel (Plavix) tablet 75 mg carvedilol (Coreg) tablet 6.25 mg isosorbide mononitrate ER (Imdur) 24 hr tablet 30 mg sacubitriL-valsartan (Entresto) 24-26 mg per tablet 1 tablet Other Relevant Orders Transthoracic Echo Complete Pulmonary comments:-Appreciate cardiology evaluation which has been done. Patient has been stronglycounseled to quit smoking and offered nicotine patch. Agree with supplemental oxygen to keep SpO2 more than 92% as being done for acute hypoxemic respiratory failure. Patient will need home O2 evaluation at discharge. As far as COPD is concerned, patient will be continued on generic DuoNeb 4 times daily and every 4 as needed. Will also start on Spiriva Respimat inhaler 2.5 mcg 2 puffs every morning. Patient appears to have snoring and his body habitus suggestive of sleep apnea. Patient and family advised to watch him for sleep apnea symptoms. He will need outpatient pulmonary function test as well as pulmonary rehab consideration down the line. A/T/S pamphlets on healthy sleep, sleep apnea, insomnia, nicotine dependency and COPD were given. I shall continue to monitor this patient with you and I thank you for the referral. I spent 55 minutes in the professional and overall care of this patient. Myke Leggett MD documented in this encounter H&P Notes * Loi Golden MD - 02/20/2025 12:44 AM EDT Images from the original note were not included. Medical Group History and Physical ASSESSMENT & PLAN: 59 y.o. 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 #. Acute hypoxic respiratory failure #. COPD #. Lactic acidosis - Currently requiring 5L nasal cannula, CT reviewed and negative for PE, consolidation, pulmonary edema, or pleural effusions and shows bibasilar atelectasis as well as mild emphysema - Very mild wheezing on exam but does not seem to fully explain degree of hypoxia, does not appear volume overloaded or decompensated from heart failure perspective - Lactic acidosis likely secondary to hypoxia Plan: - Will give a dose of IV Solu-Medrol 125 mg and start scheduled DuoNebs every 6 hours and assess response - Incentive spirometry 10x per hour while awake for atelectasis - Trend lactate - Telemetry and continuous pulse ox - Pulmonology consult - Counseled on smoking cessation - Optimizing heart failure regimen as below #. Chronic combined systolic and diastolic heart failure, NYHA Class II - Echo at [facility] reportedly showed EF 45% and grade I diastolic impairment, however clinically does not appear floridly volume overloaded, additionally no signs of volume overload on CT - Likely Class II - III NYHA given limited physical activity resulting in DILLON and fatigue - Repeat echocardiogram - Cardiology consult - Continuing home Coreg - Will stop hydralazine and nifedipine and start Entreso, Jardiance, Spironolactone - Will also hold home Imdur, can re-introduce if blood pressure allows following initiating GDMT - Strict intake and output, daily weights #. CAD s/p PTCA #. Essential hypertension - Recent PCI to mid LAD (12/2024), no reported chest pain, EKG does show ST-T changes in inferior, anterior, and inferior leads - Continuing home aspirin, Plavix, atorvastatin, coreg - Optimizing heart failure / anti-hypertensive regimen as above - Telemetry - Cardiology consulted as above #. CKD stage IIIa - Unclear baseline but appears to be improved from labs at [facility] - Monitor #. Type 2 diabetes with hyperglycemia - Holding home metformin - Check A1C - SSI, Accu-Cheks, hypoglycemic protocol #. Thrombocytopenia - Reportedly chronic per limited chart review - Outpatient follow up VTE PPX: Lovenox/SCDs Loi Golden MD --Of note, this documentation is completed using the [employer] system (voice recognition software). There may be spelling and/or grammatical errors that were not corrected prior to final submission.-- HISTORY OF PRESENT ILLNESS: Chief Complaint: shortness of breath David Tapia is a 59 y.o. male with a history of CAD s/p PTCA (12/2024), chronic combined systolic and diastolic heart failure NYHA class II-III, essential hypertension, COPD, CKD stage IIIa, type2 diabetes presenting with shortness of breath. Patient states that symptoms have been going on formonths. It is worsened over the last few days. He endorses a dry cough. He has a daily smoker. He denies any fever or chills, leg swelling, orthopnea, chest pain. He states that he was recently hospitalized and had a cardiac catheterization with stent placement last month. He does not use oxygen at home. ER Course: Hypoxic requiring 5 L nasal cannula, otherwise vital signs stable. Labs notable for hyperglycemia, elevated creatinine, lactic acidosis, elevated BNP. Troponin negative x 2. EKG shows NSR with RBBB and ST-T abnormalities in inferior, anterior, and lateral leads. CT angio negative for PE and shows mild emphysema with bibasilar dependent atelectasis. ROS 10 point review of systems negative except per HPI PAST HISTORIES: Past Medical History See HPI Surgical History He has no past surgical history on file. Social History He has no history on file for tobacco use, alcohol use, and drug use. Family History Family History[1] Allergies: Patient has no known allergies. OBJECTIVE: Last Recorded Vitals BP 139/75 (BP Location: Right arm, Patient Position: Lying) Pulse 62 Temp 36.1 ??C (97 ??F) (Temporal) Resp 18 Wt 93 kg (205 lb) SpO2 (!) 91% Last I/O: No intake/output data recorded. Physical Exam Gen: NAD, appears stated age HEENT: EOM, MMM CV: RRR, no murmurs rubs or gallops Resp: very mild end expiratory wheezing, normal effort Abdomen: soft, NT,+BS LE: trace to 1+ pitting edema to bilateral rivas, no deformity Neuro: A&Ox4, moving all extremities LABS AND IMAGING: Relevant Results Labs Reviewed CBC WITH AUTO DIFFERENTIAL - Abnormal Result Value WBC 7.8 nRBC 0.0 RBC 4.31 (*) Hemoglobin 13.3 (*) Hematocrit 39.1 (*) MCV 91 MCH 30.9 MCHC 34.0 RDW 16.6 (*) Platelets 113 (*) Neutrophils % 72.5 Immature Granulocytes %, Automated 0.3 Lymphocytes % 18.4 Monocytes % 7.4 Eosinophils % 0.9 Basophils % 0.5 Neutrophils Absolute 5.67 Immature Granulocytes Absolute, Automated 0.02 Lymphocytes Absolute 1.44 Monocytes Absolute 0.58 Eosinophils Absolute 0.07 Basophils Absolute 0.04 COMPREHENSIVE METABOLIC PANEL - Abnormal Glucose 298 (*) Sodium 141 Potassium 4.1 Chloride 111 (*) Bicarbonate 22 Anion Gap 12 Urea Nitrogen 35 (*) Creatinine 1.51 (*) eGFR 52 (*) Calcium 9.1 Albumin 4.2 Alkaline Phosphatase 126 Total Protein 6.3 (*) AST 13 Bilirubin, Total 1.1 ALT 20 B-TYPE NATRIURETIC PEPTIDE - Abnormal BNP 240 (*) Narrative: <100 pg/mL - Heart failure unlikely 100-299 pg/mL - Intermediate probability of acute heart failure exacerbation. Correlate with clinical context and patient history. >=300 pg/mL - Heart Failure likely. Correlate with clinical context and patient history. BNP testing is performed using different testing methodology at [facility] than at [facility]. Direct result comparisons should only be made within the same method. LACTATE - Abnormal Lactate 2.5 (*) Narrative: Venipuncture immediately after or during the administration of Metamizole may lead to falsely low results. Testing should be performed immediately prior to Metamizole dosing. MAGNESIUM - Normal Magnesium 1.93 SARS-COV-2 AND INFLUENZA A/B PCR - Normal Flu A Result Not Detected Flu B Result Not Detected Coronavirus 2019, PCR Not Detected Narrative: This assay is an FDA-cleared, in vitro diagnostic nucleic acid amplification test for the qualitative detection and differentiation of SARS CoV-2/ Influenza A/B from nasopharyngeal specimens collected from individuals with signs and symptoms of respiratory tract infections, and has been validated for use at [facility]. Negative results do not preclude COVID-19/ Influenza A/B infections and should not be used as the sole basis for diagnosis, treatment, or other managementdecisions. Testing for SARS CoV-2 is recommended only for patients who meet current clinical and/orepidemiological criteria defined by federal, state, or local public health directives. SERIAL TROPONIN-INITIAL - Normal Troponin I, High Sensitivity 9 Narrative: Less than 99th percentile of normal range cutoff- Female and children under 18 years old <14 ng/L; Male <21 ng/L: Negative Repeat testing should be performed if clinically indicated. Female and children under 18 years old 14-50 ng/L; Male 21-50 ng/L: Consistent with possible cardiac damage and possible increased clinical risk. Serial measurements may help to assess extent of myocardial damage. >50 ng/L: Consistent with cardiac damage, increased clinical risk and myocardial infarction. Serial measurements may help assess extent of myocardial damage. NOTE: Children less than 1 year old may have higher baseline troponin levels and results should be interpreted in conjunction with the overall clinical context. NOTE: Troponin I testing is performed using a different testing methodology at [facility] than at other [facility]. Direct result comparisons should only be made within the same method. SERIAL TROPONIN, 1 HOUR - Normal Troponin I, High Sensitivity 8 Narrative: Less than 99th percentile of normal range cutoff- Female and children under 18 years old <14 ng/L; Male <21 ng/L: Negative Repeat testing should be performed if clinically indicated. Female and children under 18 years old 14-50 ng/L; Male 21-50 ng/L: Consistent with possible cardiac damage and possible increased clinical risk. Serial measurements may help to assess extent of myocardial damage. >50 ng/L: Consistent with cardiac damage, increased clinical risk and myocardial infarction. Serial measurements may help assess extent of myocardial damage. NOTE: Children less than 1 year old may have higher baseline troponin levels and results should be interpreted in conjunction with the overall clinical context. NOTE: Troponin I testing is performed using a different testing methodology at [facility] than at other [facility]. Direct result comparisons should only be made within the same method. TROPONIN SERIES- (INITIAL, 1 HR) Narrative: The following orders were created for panel order Troponin I Series, High Sensitivity (0, 1 HR). Procedure Abnormality Status --------- ------ Troponin I, High Sensiti...[[id number]] Normal Final result Troponin, High Sensitivi...[[id number]] Normal Final result Please view results for these tests on the individual orders. LACTATE BLOOD GAS ARTERIAL FULL PANEL CT angio chest for pulmonary embolism (Results Pending) [1] No family history on file. documented in this encounter Consult Notes * Fabien Davidson MD - 02/20/2025 9:46 AM EDTAssociated Order(s): Inpatient consult to Cardiology Inpatient consult to Cardiology Consult performed by: Fabien R Davidson, MD Consult ordered by: Loi Golden MD Reason for consult: Shortness of breath Cardiology Consult Note Date: 02/20/2025 Patient name: David Tapia Date of admission: 02/19/2025 9:46 PM Date of : 1965 Time of Consult: 9:46 AM Consulting Wedding Decorator: Dr. Fabien Davidson Primary Wedding Decorator: Dr. Jaime Kasper at [facility] Admission Diagnosis: Acute hypoxic respiratory failure History of Present Illness: David Tapia is a 59 y.o. male patient who is being at the request of Dr. Lizbet Aguirrefor inpatient consultation of shortness of breath. He was admitted on 02/19/2025. Previous [facility] and [facility] records have been reviewed in detail. He has a history of atherosclerotic heart disease with recent angioplasty and stenting of the LAD on January 12, 2025 at [facility]. He presented with complaints of worsening exertional chest pressure and shortness of breath. He has a history of chronic combined systolic and diastolic congestive heart failure. An echocardiogram showed an estimated LV ejection action 45%. He has a history of hypertension, type 2 diabetes mellitus, hyperlipidemia, tobacco abuse, stage III chronic kidney disease, and COPD. He presented to the emergency department yesterday with complaints of worsening shortness of breath over the past 3 weeks or so. He thought some of his symptoms were similar to those he had prior to the stent implant although he denies any associated chest pressure. He initially presented to another emergency department was noted to have oxygen saturations in the 80s. He wasadvised to be admitted however he left against medical advice and presented to the [facility] emergencydepartment for a second opinion. Upon arrival he was noted to have stable vital signs with exception of oxygen saturation is 88 to 92%. CBC normal with the exception of hemoglobin 13.3. WBC was 7.8. Comprehensive metabolic profile normal with exception of BUN 35 and creatinine 1.51. High-sensitivity troponin level 9 and 8. BNP level 240. Lactate 2.5. CT scan of the chest was negative for pulmonary embolism or acute pulmonary process. Mild basilar atelectasis and mild emphysema. EKG shows normal sinus rhythm with diffuse nonspecific ST-T wave changes. No ST elevation. In light of his symptoms of dyspnea and documented hypoxia he was admitted to telemetry with a diagnosis of acute hypoxic respiratory failure. He was noted to have very mild wheezing on exam. He did not appear to be volume overloaded. He was placed on intravenous Solu-Medrol and DuoNebs. Recent echocardiogram at [facility] showed an estimated LV ejection fraction 45%. Hydralazine, nifedipine, and Imdur were discontinued. He has been initiated on Entresto, Jardiance, and spironolactone. He has not been complaining of any chest discomfort. Patient states he currently is feeling quite a bit better. He denies any orthopnea, PND, or increasing peripheral edema. He denies any palpitations, lightheadedness, near-syncope, or syncope. He denies any fever, chills, or cough. He denies any nausea, vomiting, or diaphoresis. He denies any hemoptysis, hematemesis, melena, or hematochezia. Allergies: Allergies[1] Past Medical History: Medical History[2] Past Surgical History: Surgical History[3] Family History: Family History[4] Social History: Social History[5] CURRENT HOSPITAL MEDICATIONS Scheduled Medications[6] Continuous Medications[7] No current outpatient medications Review of Systems: 12 point review of systems was obtained in detail and is negative other than that detailed above. Vital Signs: Vitals: 02/20/25 0213 02/20/25 0214 02/20/25 0642 02/20/25 0749 BP: 129/73 140/76 BP Location: Right arm Right arm Patient Position: Lying Lying Pulse: 61 61 Resp: 18 18 Temp: 35.1 ??C (95.2 ??F) 35.5 ??C (95.9 ??F) TempSrc: Temporal Temporal SpO2: 91% 93% 91% 94% Weight: 90.6 kg (199 lb 11.8 oz) Height: 1.803 m (5' 11 ) Intake/Output Summary (Last 24 hours) at 02/20/2025 0909 Last data filed at 02/20/2025 0751 Gross per 24 hour Intake 60 ml Output 550 ml Net -490 ml Wt Readings from Last 4 Encounters: 02/20/25 90.6 kg (199 lb 11.8 oz) Physical Examination: GENERAL APPEARANCE: Well developed, well nourished, in no acute distress. CHEST: Symmetric and non-tender. INTEGUMENT: Skin warm and dry, without gross excoriationis or lesions. HEENT: No gross abnormalities of conjunctiva, teeth, gums, oral mucosa NECK: Supple, no JVD, no bruit. Thyroid not palpable. Carotid upstrokes normal. NEURO/PSHCY: Alert and oriented x3; appropriate behavior and responses and responses, grossly normal cerebellar function with normal balance and coordination LUNGS: Few scattered expiratory wheezes; normal respiratory effort. HEART: Rate and rhythm regular with no evident murmur; no gallop appreciated. There are no rubs, clicks or heaves. PMI nondisplaced. ABDOMEN: Soft, nontender, no palpable hepatosplenomegaly, no mases, no bruits. Abdominal aorta not noted to be enlarged. MUSCULOSKELETAL: Ambulatory with normal tandem gait. EXTREMITIES: Warm with good color, no clubbing or cyanois. There is no edema noted. PERIPHERAL VASCULAR: Pulses present and equally palpable; 2+ throughout. No femoral bruits. Lab: CBC: Lab Results Component Value Date WBC 6.0 02/20/2025 RBC 4.29 (L) 02/20/2025 HGB 13.2 (L) 02/20/2025 HCT 39.2 (L) 02/20/2025 PLT 109 (L) 02/20/2025 CMP: Lab Results Component Value Date NA 140 02/20/2025 K 4.0 02/20/2025 CL 110 (H) 02/20/2025 CO2 24 02/20/2025 BUN 30 (H) 02/20/2025 CREATININE 1.41 (H) 02/20/2025 GLUCOSE 222 (H) 02/20/2025 CALCIUM 9.1 02/20/2025 BMP: Lab Results Component Value Date NA 140 02/20/2025 NA 141 02/19/2025 K 4.0 02/20/2025 K 4.1 02/19/2025 CL 110 (H) 02/20/2025 CL 111 (H) 02/19/2025 CO2 24 02/20/2025 CO2 22 02/19/2025 BUN 30 (H) 02/20/2025 BUN 35 (H) 02/19/2025 CREATININE 1.41 (H) 02/20/2025 CREATININE 1.51 (H) 02/19/2025 CBC: Lab Results Component Value Date WBC 6.0 02/20/2025 WBC 7.8 02/19/2025 RBC 4.29 (L) 02/20/2025 RBC 4.31 (L) 02/19/2025 HGB 13.2 (L) 02/20/2025 HGB 13.3 (L) 02/19/2025 HCT 39.2 (L) 02/20/2025 HCT 39.1 (L) 02/19/2025 MCV 91 02/20/2025 MCV 91 02/19/2025 MCH 30.8 02/20/2025 MCH 30.9 02/19/2025 MCHC 33.7 02/20/2025 MCHC 34.0 02/19/2025 RDW 17.2 (H) 02/20/2025 RDW 16.6 (H) 02/19/2025 PLT 109 (L) 02/20/2025 PLT 113 (L) 02/19/2025 Hepatic Function Panel: Lab Results Component Value Date ALKPHOS 126 02/19/2025 ALT 20 02/19/2025 AST 13 02/19/2025 PROT 6.3 (L) 02/19/2025 BILITOT 1.1 02/19/2025 Magnesium: Lab Results Component Value Date MG 1.93 02/19/2025 Cardiac Enzymes: Lab Results Component Value Date TROPHS 8 02/19/2025 TROPHS 9 02/19/2025 BNP: Lab Results Component Value Date BNP 240 (H) 02/19/2025 Diagnostic Studies: ECG 12 lead Result Date: 02/20/2025 Sinus rhythm with Premature supraventricular complexes Incomplete right bundle branch block Possible Right ventricular hypertrophy Cannot rule out Inferior infarct , age undetermined ST & T wave abnormality, consider anterolateral ischemia Abnormal ECG When compared with ECG of 19-FEB-2025 21:37, (unconfirmed) Premature supraventricular complexes are now Present See ED provider note for full interpretation and clinical correlation Radiology: CT angio chest for pulmonary embolism Final Result No pulmonary embolism or acute cardiopulmonary process. Mild bibasilar dependent atelectasis. Mild emphysema. MACRO: None Signed by: Divina James 02/20/2025 12:45 AM Dictation workstation: [id number] Transthoracic Echo Complete (Results Pending) Problem List: Problem List[8] Assessment: Problem List Items Addressed This Visit * (Principal) Acute hypoxic respiratory failure - Primary Other Visit Diagnoses Hypoxia Dyspnea, unspecified type Chronic systolic heart failure Relevant Medications clopidogrel (Plavix) tablet 75 mg carvedilol (Coreg) tablet 6.25 mg isosorbide mononitrate ER (Imdur) 24 hr tablet 30 mg sacubitriL-valsartan (Entresto) 24-26 mg per tablet 1 tablet Other Relevant Orders Transthoracic Echo Complete Atherosclerotic heart disease with recent angioplasty and stenting of the LAD at [facility] January 12, 2025.Patient presented with exertional chest pressure and shortness of breath. He denies any recurrent chest pressure with recent onset of dyspnea. Doubt acute stent thrombosis. Chronic heart failure with mildly reduced ejection fraction. No overt congestive heart failure. Plan: Review echocardiogram. Continue DAPT with aspirin and clopidogrel. Continue carvedilol. Agree with initiation of Jardiance and Entresto. Monitor renal function closely. Chronic tobacco abuse with underlying COPD/emphysema. Thank you for the opportunity to participate in the care of your patient. Please do not hesitate to call if you have any questions. [1] No Known Allergies [2] History reviewed. No pertinent past medical history. [3] History reviewed. No pertinent surgical history. [4] No family history on file. [5] [6] aspirin, 81 mg, oral, Daily atorvastatin, 80 mg, oral, Nightly carvedilol, 6.25 mg, oral, BID clopidogrel, 75 mg, oral, Daily empagliflozin, 10 mg, oral, Daily enoxaparin, 40 mg, subcutaneous, q24h insulin lispro, 0-10 Units, subcutaneous, TID AC ipratropium-albuteroL, 3 mL, nebulization, q6h while awake [Held by provider] isosorbide mononitrate ER, 30 mg, oral, Daily oxygen, , inhalation, Continuous - Inhalation pantoprazole, 40 mg, oral, Daily polyethylene glycol, 17 g, oral, Daily sacubitriL-valsartan, 1 tablet, oral, BID spironolactone, 12.5 mg, oral, Daily [7] [8] Patient Active Problem List Diagnosis Acute hypoxic respiratory failure CHF (congestive heart failure), NYHA class II, chronic, combined COPD (chronic obstructive pulmonary disease) (Multi) Coronary artery disease with history of percutaneous transluminal angioplasty (PTCA) Essential hypertension Lactic acidosis Stage 3a chronic kidney disease (Multi) Thrombocytopenia Type 2 diabetes mellitus with hyperglycemia, without long-term current use of insulin documented in this encounter Nursing Notes * Diana Ledesma CRT - 02/21/2025 12:20 PM EDT Pt. Does qualify for HOME 02 3L WITH HOME 02 EVAL documented in this encounter ED Notes * Dave Junior MD - 02/20/2025 1:38 AM EDT HPI: The patient is a 59-year-old with history of tobacco use but does not have history of COPD requiring oxygen as well as recent stent currently on dual antiplatelet therapy who presents to the Emergency Department with a chief complaint of progressive shortness of breath last month worse with exertion.. He reports that he has had some significant weight loss as of late which is not on purpose.Denies any history of DVT or PE mops his swelling in his legs recent travel or trauma. Denies any black or bloody stools. Denies any chest pain or chest tightness. he reports her symptoms have progressed over the last month. He went to another ER another health system yesterday and was told his saturation was in the 80s and needed oxygen but he left AGAINST MEDICAL ADVICE due to wanting a second opinion. He reports he is interested in being admitted here if need be. He reports has been taking his dual antiplatelet therapy and has not missed any of his doses. PAST MEDICAL HISTORY: as per HPI ALLERGIES: as per HPI MEDICATIONS: as per HPI FAMILY HISTORY: as per HPI SURGICAL HISTORY: as per HPI SOCIAL HISTORY: as per HPI PHYSICAL EXAM: VITAL SIGNS: Nursing notes reviewed. GENERAL: Alert and interactive EYES: Eyes track. ENT: Airway patent. RESPIRATORY: Nonlabored breathing. Clear bilaterally. No wheezes CARDIOVASCULAR: [Regular rate.] [Regular rhythm.] Radial pulses equal bilaterally. GASTROINTESTINAL: No distension. MUSCULOSKELETAL: No deformity. No calf swelling or tenderness. NEUROLOGICAL: Awake. SKIN: Dry. MEDICAL DECISION MAKING (MDM): DIAGNOSTIC STUDIES Labs: BMP, CBC, CMP, lactate, Elysium, viral swabs, troponin Radiology: CTA pulmonary angiogram EKG 2137 Per my interpretation: Electrocardiogram ECG RATE: [Normal] RHYTHM: [Sinus] AXIS: Right axis INTERVALS: [Normal] ST-T WAVE CHANGES: T wave inversion in 2 3 aVF V2 V3 V4 and V5 and V6 ABNORMALITIES/COMPARISON: No previous EKG to compare with EKG 2158 Per my interpretation: Electrocardiogram ECG RATE: [Normal] RHYTHM: [Sinus] AXIS: Right axis INTERVALS: [Normal] ST-T WAVE CHANGES: T wave inversion in 2 3 aVF V2 V3 V4 and V5 and V6 ABNORMALITIES/COMPARISON: Unchanged from earlier today EKG 2301 Per my interpretation: Electrocardiogram ECG RATE: [Normal] RHYTHM: [Sinus] AXIS: Right axis INTERVALS: [Normal] ST-T WAVE CHANGES: T wave inversion in 2 3 aVF V2 V3 V4 and V5 and V6 ABNORMALITIES/COMPARISON: Unchanged from earlier today SUMMARY: The patient is admitted to the Emergency Department for evaluation of above. Complete history and physical examination was performed by me. Patient presents with a week of progressive dyspnea and wasfound to be hypoxic here requiring a couple liters to maintain saturations which is new for him. I do not hear any wheezes to point towards COPD. EKG showed very concerning T wave inversions in the anterior and inferior leads which could be due to a PE so I prior Hardiknv for a CTA of the chest. I donot know what his EKG looks like after his recent NV so it is possible those changes are from the previous ischemic event. His EKG here did not show ST segment elevation and all 3 of his EKGs remain stable pointing away from active occlusive NV. Troponin was not elevated which also points away fromocclusive mindedly for myocarditis. He had elevated creatinine by Mady baseline. Does not look dehydrated. Mild anemia but symptoms are less consistent with GI bleed given no black or bloody stools.No leukocytosis to point toward sepsis. Viral swabs are negative. CTA did not show evidence of PE and did not show evidence of pneumonia. The exact etiology his presentation is unclear but given his hypoxia requiring oxygen supplementation to maintain sats above 90, patient will be admitted for further assessment and care. DIAGNOSIS: Hypoxia Dyspnea DISPOSITION: 1) admission Dave Junior MD 02/20/25 0138 documented in this encounter Miscellaneous Notes * Care Plan - Marce Small RN - 02/20/2025 8:00 AM EDT Problem: Safety - Adult Goal: Free from fall injury 02/20/2025 1001 by Marce Small RN Outcome: Progressing 02/20/2025 100 by Marce Small RN Outcome: Progressing Problem: Discharge Planning Goal: Discharge to home or other facility with appropriate resources 02/20/2025 100 by Marce Small RN Outcome: Progressing 02/20/2025 100 by Marce Small RN Outcome: Progressing Problem: Respiratory Goal: Minimal/no exertional discomfort or dyspnea this shift Outcome: Progressing Goal: No signs of respiratory distress (eg. Use of accessory muscles. Peds grunting) Outcome: Progressing Goal: Verbalize decreased shortness of breath this shift Outcome: Progressing Goal: Wean oxygen to maintain O2 saturation per order/standard this shift Outcome: Progressing The patient's goals for the shift include rest * Care Plan - Summer Denise RN - 02/20/2025 2:36 AM EDT Problem: Pain - Adult Goal: Verbalizes/displays adequate comfort level or baseline comfort level Outcome: Progressing Problem: Safety - Adult Goal: Free from fall injury Outcome: Progressing Problem: Discharge Planning Goal: Discharge to home or other facility with appropriate resources Outcome: Progressing Problem: Chronic Conditions and Co-morbidities Goal: Patient's chronic conditions and co-morbidity symptoms are monitored and maintained or improved Outcome: Progressing Problem: Nutrition Goal: Nutrient intake appropriate for maintaining nutritional needs Outcome: Progressing Problem: Heart Failure Goal: Improved gas exchange this shift Outcome: Progressing Goal: Improved urinary output this shift Outcome: Progressing Goal: Reduction in peripheral edema within 24 hours Outcome: Progressing Goal: Report improvement of dyspnea/breathlessness this shift Outcome: Progressing Goal: Weight from fluid excess reduced over 2-3 days, then stabilize Outcome: Progressing Goal: Increase self care and/or family involvement in 24 hours Outcome: Progressing The patient's goals for the shift include rest The clinical goals for the shift include remain HDS documented in this encounter Plan of Treatment Pending Results Name Type Priority Associated Diagnoses Date /Time ECG 12 lead ECG STAT 02/19/2025 10 :00 PM EDT ECG 12 lead ECG STAT 02/19/2025 11 :03 PM EDT ECG 12 lead ECG STAT 02/23/2025 8: 01 PM EDT documented as of this encounter Procedures Procedure Name Priority Date/Time Associated Diagnosis Comments ECG 12-LEAD STAT 02/23/2025 8:01 PM EDT Procedure Note - 02/23/2025 8:01 PM EDTThis note is in progress. Normal sinus rhythm Incomplete right bundle branch block Possible Right ventricular hypertrophy ST & T wave abnormality, consider inferior ischemia ST & T wave abnormality, consider anterolateral ischemia Abnormal ECG No previous ECGs available See ED provider note for full interpretation and clinical correlation POCT GLUCOSE Routine 02/21/2025 3:19 PM EDT POCT GLUCOSE Routine 02/21/2025 11:05 AM EDT HOME O2 EVAL (DESATURATION SCREEN) Routine 02/21/2025 11:00 AM EDT POCT GLUCOSE Routine 02/21/2025 6:37 AM EDT CBC Routine 02/21/2025 5:37 AM EDT BASIC METABOLIC PANEL Routine 02/21/2025 5:37 AM EDT POCT GLUCOSE Routine 02/20/2025 8:20 PM EDT POCT GLUCOSE Routine 02/20/2025 3:37 PM EDT POCT GLUCOSE Routine 02/20/2025 11:04 AM EDT TRANSTHORACIC ECHO (TTE) COMPLETE WITH CONTRAST Routine 02/20/2025 9:52 AM EDT Chronic systolic heart failure POCT GLUCOSE Routine 02/20/2025 6:51 AM EDT CBC Routine 02/20/2025 5:48 AM EDT BASIC METABOLIC PANEL Routine 02/20/2025 5:48 AM EDT POCT GLUCOSE Routine 02/20/2025 2:[address] ANGIO CHEST FOR PULMONARY EMBOLISM STAT 02/19/2025 11:51 PM EDT ECG 12-LEAD STAT 02/19/2025 11:03 PM EDT Procedure Note - Wendy Garcia - 02/19/2025 11:03 PM EDTThis note is in progress. Normal sinus rhythm Rightward axis Incomplete right bundle branch block ST & T wave abnormality, consider inferior ischemia ST & T wave abnormality, consider anterolateral ischemia Abnormal ECG When compared with ECG of 19-FEB-2025 21:37, (unconfirmed) No significant change was found See ED provider note for full interpretation and clinical correlation SERIAL TROPONIN, 1 HOUR STAT 02/19/2025 11:02 PM EDT TROPONIN SERIES- (INITIAL, 1 HR) STAT 02/19/2025 10:04 PM EDT CBC WITH AUTO DIFFERENTIAL STAT 02/19/2025 10:04 PM EDT SERIAL TROPONIN-INITIAL STAT 02/19/2025 10:04 PM EDT B-TYPE NATRIURETIC PEPTIDE STAT 02/19/2025 10:04 PM EDT MAGNESIUM STAT 02/19/2025 10:04 PM EDT LACTATE STAT 02/19/2025 10:04 PM EDT HEMOGLOBIN A1C Add-On 02/19/2025 10:04 PM EDT COMPREHENSIVE METABOLIC PANEL STAT 02/19/2025 10:04 PM EDT SARS-COV-2 AND INFLUENZA A/B PCR STAT 02/19/2025 10:01 PM EDT EXTRA TUBES Routine 02/19/2025 10:01 PM EDT LIGHT BLUE TOP Routine 02/19/2025 10:01 PM EDT ECG 12-LEAD STAT 02/19/2025 10:00 PM EDT Procedure Note - 02/19/2025 10:00 PM EDTThis note is in progress. Sinus rhythm with Premature supraventricular complexes Incomplete right bundle branch block Possible Right ventricular hypertrophy Cannot rule out Inferior infarct , age undetermined ST & T wave abnormality, consider anterolateral ischemia Abnormal ECG When compared with ECG of 19-FEB-2025 21:37, (unconfirmed) Premature supraventricular complexes are now Present See ED provider note for full interpretation and clinical correlation documented in this encounter Results * (ABNORMAL) POCT GLUCOSE (02/21/2025 3:19 PM EDT) [facility] POCT Glucose 190(H) 74 - 99 mg/dL 02/21/2025 3:[address] [facility] Blood Capillary blood specimen / Unknown 02/21/2025 3:19 PM EDT 02/21/2025 3:21 PM EDT us Lizbet Aguirre MD LAB POINT OF CARE TE ST DOCKED DEVICE UNSOLICITED RESULTS Final Result [facility] [address] [place] [address] * (ABNORMAL) POCT GLUCOSE (02/21/2025 11:05 AM EDT) [facility] POCT Glucose 182(H) 74 - 99 mg/dL 02/21/2025 11:[address] [facility] Blood Capillary blood specimen / Unknown 02/21/2025 11:05 AM EDT 02/21/2025 11:07 AM EDT us Lizbet Aguirre MD LAB POINT OF CARE TE ST DOCKED DEVICE UNSOLICITED RESULTS Final Result [facility] [address] [place] [address] * (ABNORMAL) POCT GLUCOSE (02/21/2025 6:37 AM EDT) POCT Glucose 154(H) 74 - 99 mg/dL 02/21/2025 6:[address] [facility] Blood Capillary blood specimen / Unknown 02/21/2025 6:37 AM EDT 02/21/2025 6:38 AM EDT us Lizbet Aguirre MD LAB POINT OF CARE TE ST DOCKED DEVICE UNSOLICITED RESULTS Final Result Performing Organization Address City/[facility]/ZIP Co de Phone Number [facility] [address] [place] [phone] * (ABNORMAL) Basic metabolic panel (02/21/2025 5:37 AM EDT) Glucose 147(H) 74 - 99 mg/dL LAB CHEMISTRY METHOD 02/21/2025 6:[address] [facility] Sodium 140 136 - 145 mmol/L LAB CHEMISTRY METHOD 02/21/2025 6:[address] [facility] Potassium 4.0 3.5 - 5.3 mmol/L LAB CHEMISTRY METHOD 02/21/2025 6:[address] [facility] Chloride 107 98 - 107 mmol/L LAB CHEMISTRY METHOD 02/21/2025 6:[address] [facility] Bicarbonate 26 21 - 32 mmol/L LAB CHEMISTRY METHOD 02/21/2025 6:[address] [facility] Anion Gap 11 10 - 20 mmol/L LAB CHEMISTRY METHOD 02/21/2025 6:[address] [facility] Urea Nitrogen 30(H) 6 - 23 mg/dL LAB CHEMISTRY METHOD 02/21/2025 6:[address] [facility] Creatinine 1.47(H) 0.50 - 1.30 mg/dL LAB CHEMISTRY METHOD 02/21/2025 6:[address] [facility] eGFR 54(L) >60 mL/min/1. 73m*2 LAB CHEMISTRY METHOD 02/21/2025 6:[address] [facility] Comment: Calculations of estimated GFR are performed using the 2020 CKD-EPI Study Refit equation without the race variable for the IDMS-Traceable creatinine methods. https://jasn.asnjournals.org/content/early/ASN.9498688464 Calcium 9.2 8.6 - 10.3 mg/dL LAB CHEMISTRY METHOD 02/21/2025 6:[address] [facility] Blood Venous blood specimen / Unknown Venipuncture / Unknown 02/21/2025 5:37 AM EDT 02/21/2025 6:12 AM EDT Loi Golden MD LAB BLOOD ORDERABLES Final Result [facility] [address] [place] [address] * (ABNORMAL) CBC (02/21/2025 5:37 AM EDT) WBC 9.2 4.4 - 11.3 x10*3/uL LAB HEMATOLOGY METHOD 02/21/2025 7:[address] [facility] nRBC 0.0 0.0 - 0.0 /100 WBCs LAB HEMATOLOGY METHOD 02/21/2025 7:[address] [facility] RBC 4.54 4.50 - 5.90 x10*6/uL LAB HEMATOLOGY METHOD 02/21/2025 7:[address] [facility] Hemoglobin 14.0 13.5 - 17.5 g/dL LAB HEMATOLOGY METHOD 02/21/2025 7:[address] [facility] Hematocrit 41.2 41.0 - 52.0 % LAB HEMATOLOGY METHOD 02/21/2025 7:[address] [facility] MCV 91 80 - 100 fL LAB HEMATOLOGY METHOD 02/21/2025 7:[address] [facility] MCH 30.8 26.0 - 34.0 pg LAB HEMATOLOGY METHOD 02/21/2025 7:[address] [facility] MCHC 34.0 32.0 - 36.0 g/dL LAB HEMATOLOGY METHOD 02/21/2025 7:[address] [facility] RDW 16.6(H) 11.5 - 14.5 % LAB HEMATOLOGY METHOD 02/21/2025 7:[address] [facility] Platelets 109(L) 150 - 450 x10*3/uL LAB HEMATOLOGY METHOD 02/21/2025 7:[address] [facility] Blood Venous blood specimen / Unknown Venipuncture / Unknown 02/21/2025 5:37 AM EDT 02/21/2025 6:13 AM EDT us Loi Golden MD LAB BLOOD ORDERABLES Final Result [facility] [address] [place] [address] * (ABNORMAL) POCT GLUCOSE (02/20/2025 8:20 PM EDT) POCT Glucose 160(H) 74 - 99 mg/dL 02/20/2025 8:[address] [facility] Blood Capillary blood specimen / Unknown 02/20/2025 8:20 PM EDT 02/20/2025 8:21 PM EDT us Lizbet Aguirre MD LAB POINT OF CARE TE ST DOCKED DEVICE UNSOLICITED RESULTS Final Result [facility] [address] [place] [phone] * (ABNORMAL) POCT GLUCOSE (02/20/2025 3:37 PM EDT) [facility] POCT Glucose 178(H) 74 - 99 mg/dL 02/20/2025 3:[address] [facility] Blood Capillary blood specimen / Unknown 02/20/2025 3:37 PM EDT 02/20/2025 3:38 PM EDT us Lizbet Aguirre MD LAB POINT OF CARE TE ST DOCKED DEVICE UNSOLICITED RESULTS Final Result [facility] [address] [place] [phone] * (ABNORMAL) POCT GLUCOSE (02/20/2025 11:04 AM EDT) [facility] POCT Glucose 268(H) 74 - 99 mg/dL 02/20/2025 11:[address] [facility] Blood Capillary blood specimen / Unknown 02/20/2025 11:04 AM EDT 02/20/2025 11:06 AM EDT us Lizbet Aguirre MD LAB POINT OF CARE TE ST DOCKED DEVICE UNSOLICITED RESULTS Final Result [facility] [address] [place] [id number] * TRANSTHORACIC ECHO (TTE) COMPLETE WITH CONTRAST (02/20/2025 9:52 AM EDT) AV mn grad 5 mmHg SYNGO AV pk boby 1.64 m/s SYNGO LV Biplane EF 66 % SYNGO LVOT diam 2.04 cm SYNGO MV E/A ratio 0.52 SYNGO Tricuspid annular plane systolic excursion 2.0 cm SYNGO LA vol index A/L 12.7 ml/m2 SYNGO LV EF 68 % SYNGO RV free wall pk S' 9.90 cm/s SYNGO RVSP 40 mmHg SYNGO LVIDd 3.16 cm SYNGO Aortic Valve Area by Continuity of Peak Velocity 1.88 cm2 SYNGO AV pk grad 11 mmHg SYNGO Aortic Valve Area by Continuity of VTI 2.07 cm2 SYNGO LV A4C EF 68.8 SYNGO 02/20/2025 8:52 AM EDT Narrative SYNGO - 02/20/2025 1:57 PM EDT [place] [id number] TRANSTHORACIC ECHOCARDIOGRAM REPORT Patient Name: DAVID TAPIA Reading Physician: [id number] Fabien Davidson MD, [facility] Study Date: 02/20/2025 Ordering Provider: [id number] LOI GOLDEN MRN/PID: [id number] Fellow: Nurse: Date of /Age: 1 1965 / 59 years Continuing Education Specialist: Eliazar Christianson RD, RVT Gender Assigned at Additional Staff: : Height: 180.34 cm Admit Date: 02/19/2025 Weight: 90.27 kg Admission Status: Inpatient - Routine BSA / BMI: 2.10 m2 / 27.76 Department Location: [address] [place] [address] kg/m2 Blood Pressure: 129 /73 mmHg Study Type: TRANSTHORACIC ECHO (TTE) COMPLETE Diagnosis/ICD: Chronic systolic (congestive) heart failure (CHF)-I50.22 Indication: chronic systolic heart failure CPT Codes: Echo Complete w Full [id number] Patient History: Pertinent History: CHF, CAD, HTN, COPD, CKD, DM, respiratory failure. Study Detail: The following Echo studies were performed: 2D, M-Mode, Doppler and color flow. Definity used as a contrast agent for endocardial border definition and agitated saline used as a contrast agent for intraseptal flow evaluation. Total contrast used for this procedure was 3.5 mL via IV push. PHYSICIAN INTERPRETATION: Left Ventricle: The left ventricular systolic function is normal with a visually estimated ejection fraction of 65-70%. There are no regional wall motion abnormalities. The left ventricular cavity size is normal. There is mild increased septal and mildly increased posterior left ventricular wall thickness. There is left ventricular concentric remodeling. The interventricular septum is flattened in systole and diastole, consistent with right ventricular pressure and volume overload. Spectral Doppler shows a Grade I (impaired relaxation pattern) of left ventricular diastolic filling with normal left atrial filling pressure. Hyperechoic myocardium. Conside possible infiltrative cardiomyopathy. Left Atrium: The left atrial size is normal. A bubble study using agitated saline was performed. Bubble study is positive. A large PFO (> 20 bubbles) was demonstrated. Left atrial volume index 15.1 mL/m2. Right Ventricle: The right ventricle is severely enlarged. There is moderately reduced right ventricular systolic function. Right Atrium: The right atrial size is moderate to severely dilated. Aortic Valve: The aortic valve is trileaflet. The aortic valve area by VTI is 2.07 cm with a peak velocity of 1.64 m/s. The peak and mean gradients are 10 mmHg and 5 mmHg, respectively, with a dimensionless index of 0.63. There is mild aortic valve cusp calcification. There is no evidence of aortic valve regurgitation. Mitral Valve: The mitral valve is mildly thickened. There is mild mitral valve regurgitation. The E Vmax is 0.63 m/s. Tricuspid Valve: The tricuspid valve is structurally normal. There is mild tricuspid regurgitation. The Doppler estimated right ventricular systolic pressure (RVSP) is mildly elevated at 40 mmHg. Pulmonic Valve: The pulmonic valve is structurally normal. There is no indication of pulmonic valve regurgitation. Pericardium: Trivial pericardial effusion. Aorta: The aortic root is normal. Systemic Veins: The inferior vena cava appears moderately dilated, with IVC inspiratory collapse less than 50%. In comparison to the previous echocardiogram(s): Previous echocardiogram and [facility] 12/2024 reported an LVEF 45%. CONCLUSIONS: 1. The left ventricular systolic function is normal with a visually estimated ejection fraction of 65-70%. 2. No regional wall motion abnormalities. 3. Spectral Doppler shows a Grade I (impaired relaxation pattern) of left ventricular diastolic filling with normal left atrial filling pressure. 4. Hyperechoic myocardium. Conside possible infiltrative cardiomyopathy. 5. Right ventricular volume and pressure overload. 6. There is moderately reduced right ventricular systolic function. 7. Severely enlarged right ventricle. 8. The right atrial size is moderate to severely dilated. 9. Mild mitral valve regurgitation. 10. Mild tricuspid regurgitation is visualized. 11. The Doppler estimated RVSP is mildly elevated at 40 mmHg. 12. The inferior vena cava appears moderately dilated, with IVC inspiratory collapse less than 50%. 13. Previous echocardiogram and [facility] 12/2024 reported an LVEF 45%. 14. A bubble study using agitated saline was performed. Bubble study is positive. A large PFO (> 20 bubbles) was demonstrated. QUANTITATIVE DATA SUMMARY: 2D MEASUREMENTS: Normal Ranges: Ao Root d: 3.45 cm (2.0-3.7cm) LAs: 4.22 cm (2.7-4.0cm) RVIDd: 4.46 cm (0.9-3.6cm) IVSd: 1.22 cm (0.6-1.1cm) LVPWd: 1.13 cm (0.6-1.1cm) LVIDd: 3.16 cm (3.9-5.9cm) LVIDs: 2.14 cm LV Mass Index: 53.9 g/m2 LVEDV Index: 38.15 ml/m2 LV % FS 32.3 % LEFT ATRIUM: Normal Ranges: LA Vol A4C: 21.3 ml (22+/-6mL/m2) LA Vol A2C: 31.8 ml LA Vol BP: 26.7 ml LA Vol Index A4C: 10.1ml/m2 LA Vol Index A2C: 15.1 ml/m2 LA Vol Index BP: 12.7 ml/m2 LA Area A4C: 12.1 cm2 LA Area A2C: 14.4 cm2 LA Major Winston A4C: 5.8 cm LA Major Winston A2C: 5.5 cm RIGHT ATRIUM: Normal Ranges: RA Area A4C: 26.4 cm2 AORTA MEASUREMENTS: Normal Ranges: Asc Ao, d: 3.30 cm (2.1-3.4cm) LV SYSTOLIC FUNCTION: Normal Ranges: EF-A4C View: 69 % (>=55%) EF-A2C View: 63 % EF-Biplane: 66 % EF-Visual: 68 % LV EF Reported: 68 % LV DIASTOLIC FUNCTION: Normal Ranges: MV Peak E: 0.63 m/s (0.7-1.2 m/s) MV Peak A: 1.21 m/s (0.42-0.7 m/s) E/A Ratio: 0.52 (1.0-2.2) MV e' 0.062 m/s (>8.0) MV lateral e' 0.08 m/s MV medial e' 0.04 m/s E/e' Ratio: 10.15 (<8.0) PulmV Sys Boby: 54.10 cm/s PulmV Atkins Boby: 36.10 cm/s PulmV S/D Boby: 1.50 AORTIC VALVE: Normal Ranges: AoV Vmax: 1.64 m/s (<=1.7m/s) AoV Peak P.8 mmHg (<20mmHg) AoV Mean P.0 mmHg (1.7-11.5mmHg) LVOT Max Boby: 0.94 m/s (<=1.1m/s) AoV VTI: 34.60 cm (18-25cm) LVOT VTI: 21.90 cm LVOT Diameter: 2.04 cm (1.8-2.4cm) AoV Area, VTI: 2.07 cm2 (2.5-5.5cm2) AoV Area,Vmax: 1.88 cm2 (2.5-4.5cm2) AoV Dimensionless Index: 0.63 RIGHT VENTRICLE: RV Basal 5.09 cm RV Mid 4.24 cm RV Major 8.8 cm TAPSE: 20.3 mm RV s' 0.10 m/s TRICUSPID VALVE/RVSP: Normal Ranges: Peak TR Velocity: 2.52 m/s Est. RA Pressure: 15 mmHg RV Syst Pressure: 40 mmHg (< 30mmHg) IVC Diam: 2.64 cm PULMONIC VALVE: Normal Ranges: PV Accel Time: 232 msec (>120ms) PV Max Boby: 0.8 m/s (0.6-0.9m/s) PV Max P.4 mmHg PULMONARY VEINS: PulmV Atkins Boby: 36.10 cm/s PulmV S/D Boby: 1.50 PulmV Sys Boby: 54.10 cm/s [id number] Fabien Davidson MD, [facility] Electronically signed on 02/20/2025 at 1:57:28 PM Final Procedure Note Fabien Davidson MD - 02/20/2025 [place] [id number] TRANSTHORACIC ECHOCARDIOGRAM REPORT Patient Name: DAVID TAPIA Reading Physician: [id number] Davidson MD,[facility] Study Date: 02/20/2025 Ordering Provider: [id number] J JOSTINStanislav MRN/PID: [id number] Fellow: Nurse: Date of /Age: 1 1965 / 59 years Continuing Education Specialist: Rosi HARDING, RVT Gender Assigned at Additional Staff: : Height: 180.34 cm Admit Date: 02/19/2025 Weight: 90.27 kg Admission Status: Inpatient- Routine BSA / BMI: 2.10 m2 / 27.76 Department Location: [address] [place] [address] kg/m2 Blood Pressure: 129 /73 mmHg Study Type: TRANSTHORACIC ECHO (TTE) COMPLETE Diagnosis/ICD: Chronic systolic (congestive) heart failure (CHF)-I50.22 Indication: chronic systolic heart failure CPT Codes: Echo Complete w Full Doppler-[id number] Patient History: Pertinent History: CHF, CAD, HTN, COPD, CKD, DM, respiratory failure. Study Detail: The following Echo studies were performed: 2D, M-Mode,Doppler and color flow. Definity used as a contrast agent forendocardial border definition and agitated saline used as a contrastagent for intraseptal flow evaluation. Total contrast used for this procedure was 3.5 mL via IV push. PHYSICIAN INTERPRETATION: Left Ventricle: The left ventricular systolic function is normal with avisually estimated ejection fraction of 65-70%. There are no regional wallmotion abnormalities. The left ventricular cavity size is normal. There ismild increased septal and mildly increased posterior left ventricular wallthickness. There is left ventricular concentric remodeling. Theinterventricular septum is flattened in systole and diastole, consistentwith right ventricular pressure and volume overload. Spectral Dopplershows a Grade I (impaired relaxation pattern) of left ventriculardiastolic filling with normal left atrial filling pressure. Hyperechoicmyocardium. Conside possible infiltrative cardiomyopathy. Left Atrium: The left atrial size is normal. A bubble study using agitatedsaline was performed. Bubble study is positive. A large PFO (> 20 bubbles)was demonstrated. Left atrial volume index 15.1 mL/m2. Right Ventricle: The right ventricle is severely enlarged. There ismoderately reduced right ventricular systolic function. Right Atrium: The right atrial size is moderate to severely dilated. Aortic Valve: The aortic valve is trileaflet. The aortic valve area by VTIis 2.07 cm with a peak velocity of 1.64 m/s. The peak and meangradients are 10 mmHg and 5 mmHg, respectively, with a dimensionless indexof 0.63. There is mild aortic valve cusp calcification. There is noevidence of aortic valve regurgitation. Mitral Valve: The mitral valve is mildly thickened. There is mild mitralvalve regurgitation. The E Vmax is 0.63 m/s. Tricuspid Valve: The tricuspid valve is structurally normal. There is mildtricuspid regurgitation. The Doppler estimated right ventricular systolicpressure (RVSP) is mildly elevated at 40 mmHg. Pulmonic Valve: The pulmonic valve is structurally normal. There is noindication of pulmonic valve regurgitation. Pericardium: Trivial pericardial effusion. Aorta: The aortic root is normal. Systemic Veins: The inferior vena cava appears moderately dilated, withIVC inspiratory collapse less than 50%. In comparison to the previous echocardiogram(s): Previous echocardiogramand [facility] 12/[facility] reported an LVEF 45%. CONCLUSIONS: 1. The left ventricular systolic function is normal with a visuallyestimated ejection fraction of 65-70%. 2. No regional wall motion abnormalities. 3. Spectral Doppler shows a Grade I (impaired relaxation pattern) of leftventricular diastolic filling with normal left atrial filling pressure. 4. Hyperechoic myocardium. Conside possible infiltrativecardiomyopathy. 5. Right ventricular volume and pressure overload. 6. There is moderately reduced right ventricular systolic function. 7. Severely enlarged right ventricle. 8. The right atrial size is moderate to severely dilated. 9. Mild mitral valve regurgitation. 10. Mild tricuspid regurgitation is visualized. 11. The Doppler estimated RVSP is mildly elevated at 40 mmHg. 12. The inferior vena cava appears moderately dilated, with IVCinspiratory collapse less than 50%. 13. Previous echocardiogram and [facility] 12/2024 reported an LVEF 45%. 14. A bubble study using agitated saline was performed. Bubble study ispositive. A large PFO (> 20 bubbles) was demonstrated. QUANTITATIVE DATA SUMMARY: 2D MEASUREMENTS: Normal Ranges: Ao Root d: 3.45 cm (2.0-3.7cm) LAs: 4.22 cm (2.7-4.0cm) RVIDd: 4.46 cm (0.9-3.6cm) IVSd: 1.22 cm (0.6-1.1cm) LVPWd: 1.13 cm (0.6-1.1cm) LVIDd: 3.16 cm (3.9-5.9cm) LVIDs: 2.14 cm LV Mass Index: 53.9 g/m2 LVEDV Index: 38.15 ml/m2 LV % FS 32.3 % LEFT ATRIUM: Normal Ranges: LA Vol A4C: 21.3 ml (22+/-6mL/m2) LA Vol A2C: 31.8 ml LA Vol BP: 26.7 ml LA Vol Index A4C: 10.1ml/m2 LA Vol Index A2C: 15.1 ml/m2 LA Vol Index BP: 12.7 ml/m2 LA Area A4C: 12.1 cm2 LA Area A2C: 14.4 cm2 LA Major Winston A4C: 5.8 cm LA Major Winston A2C: 5.5 cm RIGHT ATRIUM: Normal Ranges: RA Area A4C: 26.4 cm2 AORTA MEASUREMENTS: Normal Ranges: Asc Ao, d: 3.30 cm (2.1-3.4cm) LV SYSTOLIC FUNCTION: Normal Ranges: EF-A4C View: 69 % (>=55%) EF-A2C View: 63 % EF-Biplane: 66 % EF-Visual: 68 % LV EF Reported: 68 % LV DIASTOLIC FUNCTION: Normal Ranges: MV Peak E: 0.63 m/s (0.7-1.2 m/s) MV Peak A: 1.21 m/s (0.42-0.7 m/s) E/A Ratio: 0.52 (1.0-2.2) MV e' 0.062 m/s (>8.0) MV lateral e' 0.08 m/s MV medial e' 0.04 m/s E/e' Ratio: 10.15 (<8.0) PulmV Sys Boby: 54.10 cm/s PulmV Atkins Boby: 36.10 cm/s PulmV S/D Boby: 1.50 AORTIC VALVE: Normal Ranges: AoV Vmax: 1.64 m/s (<=1.7m/s) AoV Peak P.8 mmHg (<20mmHg) AoV Mean P.0 mmHg (1.7-11.5mmHg) LVOT Max Boby: 0.94 m/s (<=1.1m/s) AoV VTI: 34.60 cm (18-25cm) LVOT VTI: 21.90 cm LVOT Diameter: 2.04 cm (1.8-2.4cm) AoV Area, VTI: 2.07 cm2 (2.5-5.5cm2) AoV Area,Vmax: 1.88 cm2 (2.5-4.5cm2) AoV Dimensionless Index: 0.63 RIGHT VENTRICLE: RV Basal 5.09 cm RV Mid 4.24 cm RV Major 8.8 cm TAPSE: 20.3 mm RV s' 0.10 m/s TRICUSPID VALVE/RVSP: Normal Ranges: Peak TR Velocity: 2.52 m/s Est. RA Pressure: 15 mmHg RV Syst Pressure: 40 mmHg (< 30mmHg) IVC Diam: 2.64 cm PULMONIC VALVE: Normal Ranges: PV Accel Time: 232 msec (>120ms) PV Max Boby: 0.8 m/s (0.6-0.9m/s) PV Max P.4 mmHg PULMONARY VEINS: PulmV Atkins Boby: 36.10 cm/s PulmV S/D Boby: 1.50 PulmV Sys Boby: 54.10 cm/s [id number] Fabien Davidson MD, [facility] Electronically signed on 02/20/2025 at 1:57:28 PM Final us Loi Golden MD CV ECHO PROCEDURES Final Re sult SYNGO * (ABNORMAL) POCT GLUCOSE (02/20/2025 6:51 AM EDT) POCT Glucose 222(H) 74 - 99 mg/dL 02/20/2025 6:[address] [facility] Blood Capillary blood specimen / Unknown 02/20/2025 6:51 AM EDT 02/20/2025 6:52 AM EDT us Loi Golden MD LAB POINT OF CARE T EST DOCKED DEVICE UNSOLICITED RESULTS Final Result [facility] [address] [place] [id number] * (ABNORMAL) Basic metabolic panel (02/20/2025 5:48 AM EDT) [facility] Glucose 222(H) 74 - 99 mg/dL LAB CHEMISTRY METHOD 02/20/2025 7:[address] [facility] Sodium 140 136 - 145 mmol/L LAB CHEMISTRY METHOD 02/20/2025 7:[address] [facility] Potassium 4.0 3.5 - 5.3 mmol/L LAB CHEMISTRY METHOD 02/20/2025 7:[address] [facility] Chloride 110(H) 98 - 107 mmol/L LAB CHEMISTRY METHOD 02/20/2025 7:[address] [facility] Bicarbonate 24 21 - 32 mmol/L LAB CHEMISTRY METHOD 02/20/2025 7:[address] [facility] Anion Gap 10 10 - 20 mmol/L LAB CHEMISTRY METHOD 02/20/2025 7:[address] [facility] Urea Nitrogen 30(H) 6 - 23 mg/dL LAB CHEMISTRY METHOD 02/20/2025 7:[address] [facility] Creatinine 1.41(H) 0.50 - 1.30 mg/dL LAB CHEMISTRY METHOD 02/20/2025 7:04 AM [facility] eGFR 57(L) >60 mL/min/1. 73m*2 LAB CHEMISTRY METHOD 02/20/2025 7:04 AM [facility] Comment: Calculations of estimated GFR are performed using the 2020 CKD-EPI Study Refit equation without the race variable for the IDMS-Traceable creatinine methods. https://jasn.asnjournals.org/content//ASN.3742244723 Calcium 9.1 8.6 - 10.3 mg/dL LAB CHEMISTRY METHOD 02/20/2025 7:04 AM [facility] Blood Venous blood specimen / Unknown Venipuncture / Unknown 02/20/2025 5:48 AM EDT 02/20/2025 6:25 AM EDT us Loi Golden MD LAB BLOOD ORDERABLES Final Result [facility] [address] [place] [address] * (ABNORMAL) CBC (02/20/2025 5:48 AM EDT) WBC 6.0 4.4 - 11.3 x10*3/uL LAB HEMATOLOGY METHOD 02/20/2025 6:[address] [facility] nRBC 0.0 0.0 - 0.0 /100 WBCs LAB HEMATOLOGY METHOD 02/20/2025 6:[address] [facility] RBC 4.29(L) 4.50 - 5.90 x10*6/uL LAB HEMATOLOGY METHOD 02/20/2025 6:[address] [facility] Hemoglobin 13.2(L) 13.5 - 17.5 g/dL LAB HEMATOLOGY METHOD 02/20/2025 6:[address] [facility] Hematocrit 39.2(L) 41.0 - 52.0 % LAB HEMATOLOGY METHOD 02/20/2025 6:[address] [facility] MCV 91 80 - 100 fL LAB HEMATOLOGY METHOD 02/20/2025 6:[address] [facility] MCH 30.8 26.0 - 34.0 pg LAB HEMATOLOGY METHOD 02/20/2025 6:[address] [facility] MCHC 33.7 32.0 - 36.0 g/dL LAB HEMATOLOGY METHOD 02/20/2025 6:[address] [facility] RDW 17.2(H) 11.5 - 14.5 % LAB HEMATOLOGY METHOD 02/20/2025 6:[address] [facility] Platelets 109(L) 150 - 450 x10*3/uL LAB HEMATOLOGY METHOD 02/20/2025 6:[address] [facility] Blood Venous blood specimen / Unknown Venipuncture / Unknown 02/20/2025 5:48 AM EDT 02/20/2025 6:28 AM EDT us Loi Golden MD LAB BLOOD ORDERABLES Final Result Performing Organization Address City/[facility]/ZIP Co de Phone Number [facility] [address] [place] [address] * (ABNORMAL) POCT GLUCOSE (02/20/2025 2:54 AM EDT) POCT Glucose 203(H) 74 - 99 mg/dL 02/20/2025 2:[address] [facility] Blood Capillary blood specimen / Unknown 02/20/2025 2:54 AM EDT 02/20/2025 2:55 AM EDT Loi Golden MD LAB POINT OF CARE T EST DOCKED DEVICE UNSOLICITED RESULTS Final Result Performing Organization Address [facility] Co de Phone Number [facility] [address] [place] [id number] * CT angio chest for pulmonary embolism (02/19/2025 11:51 PM EDT) Anatomical Region Laterality Modality Thoracic, Chest Computed Tomogra phy 02/20/2025 12:4 7 AM EDT 02/20/2025 12:47 AM EDT Impressions 02/20/2025 12:45 AM EDT No pulmonary embolism or acute cardiopulmonary process. Mild bibasilar dependent atelectasis. Mild emphysema. MACRO: None Signed by: Divina James 02/20/2025 12:45 AM Dictation workstation: [id number] Narrative 02/20/2025 12:45 AM EDT Interpreted By: Divina James, STUDY: CT ANGIO CHEST FOR PULMONARY EMBOLISM; 02/19/2025 11:51 pm INDICATION: Signs/Symptoms:c/f PE. COMPARISON: None. ACCESSION NUMBER(S): [id number] ORDERING CLINICIAN: DAVE JUNIOR TECHNIQUE: Axial CT images of the chest obtained after intravenous administration of contrast. Maximum intensity projection images were created and reviewed. FINDINGS: VESSELS: No aortic aneurysm. No pulmonary embolism. HEART: Normal size. Severe calcification versus stent in the LAD. No pericardial effusion. MEDIASTINUM AND CASSY: No pathologically enlarged lymph nodes. LUNG, PLEURA, AND LARGE AIRWAYS: No pleural effusion or pneumothorax. No pulmonary consolidation or suspicious pulmonary nodule. Mild emphysema. Bibasilar dependent atelectasis. CHEST WALL AND LOWER NECK: Within normal limits. UPPER ABDOMEN: No acute abnormality of the visualized abdomen. BONES: No acute osseous abnormality. [id number] diffuse degenerative disc changes. Procedure Note Divina James MD - 02/20/2025 Interpreted By: Divina James, STUDY: CT ANGIO CHEST FOR PULMONARY EMBOLISM; 02/19/2025 11:51 pm INDICATION: Signs/Symptoms:c/f PE. COMPARISON: None. ACCESSION NUMBER(S): [id number] ORDERING CLINICIAN: DAVE JUNIOR TECHNIQUE: Axial CT images of the chest obtained after intravenous administration of contrast. Maximum intensity projection images were created and reviewed. FINDINGS: VESSELS: No aortic aneurysm. No pulmonary embolism. HEART: Normal size. Severe calcification versus stent in the LAD. No pericardial effusion. MEDIASTINUM AND CASSY: No pathologically enlarged lymph nodes. LUNG, PLEURA, AND LARGE AIRWAYS: No pleural effusion or pneumothorax. No pulmonary consolidation or suspicious pulmonary nodule. Mild emphysema. Bibasilar dependent atelectasis. CHEST WALL AND LOWER NECK: Within normal limits. UPPER ABDOMEN: No acute abnormality of the visualized abdomen. BONES: No acute osseous abnormality. [id number] diffuse degenerative disc changes. IMPRESSION: No pulmonary embolism or acute cardiopulmonary process. Mild bibasilar dependent atelectasis. Mild emphysema. MACRO: None Signed by: Divina James 02/20/2025 12:45 AM Dictation workstation: [id number] us Dave Junior MD IM CT PROCEDURES Final Resul t * Troponin, High Sensitivity, 1 Hour (02/19/2025 11:02 PM EDT) Troponin I, High Sensitivity 8 0 - 20 ng/L LAB IMMUNOASSAY METHOD 02/19/2025 11:[address] [facility] Blood Venous blood specimen / Unknown Venipuncture / Unknown 02/19/2025 11:02 PM EDT 02/19/2025 11:[address] [facility] - 02/19/2025 11:30 PM EDT Less than 99th percentile of normal range cutoff- Female and children under 18 years old <14 ng/L; Male <21 ng/L: Negative Repeat testing should be performed if clinically indicated. Female and children under 18 years old 14-50 ng/L; Male 21-50 ng/L: Consistent with possible cardiac damage and possible increased clinical risk. Serial measurements may help to assess extent of myocardial damage. >50 ng/L: Consistent with cardiac damage, increased clinical risk and myocardial infarction. Serial measurements may help assess extent of myocardial damage. NOTE: Children less than 1 year old may have higher baseline troponin levels and results should be interpreted in conjunction with the overall clinical context. NOTE: Troponin I testing is performed using a different testing methodology at [facility] than at other [facility]. Direct result comparisons should only be made within the same method. us Dave Junior MD LAB BLOOD ORDERABLES Final Re sult [facility] [address] [place] [address] * (ABNORMAL) Hemoglobin A1c (02/19/2025 10:04 PM EDT) Hemoglobin A1C 7.7(H) See comment % 025 11:36 AM EDT [facility] Estimated Average Glucose 174 Not Established mg/dL 02/20/2025 11:36 AM EDT [facility] Blood Venous blood specimen / Unknown Venipuncture / Unknown 02/19/2025 10:04 PM EDT 02/19/2025 10:07 PM EDT Narrative [facility] - 02/20/2025 11:36 AM EDT Diagnosis of Diabetes-Adults Non-Diabetic: < or = 5.6% Increased risk for developing diabetes: 5.7-6.4% Diagnostic of diabetes: > or = 6.5% us Lio Golden MD LAB BLOOD ORDERABLES Final Result [facility] [id number] [facility] [address] [place] [address] * Troponin I, High Sensitivity, Initial (02/19/2025 10:04 PM EDT) Pathologist [facility] Troponin I, High Sensitivity 9 0 - 20 ng/L LAB IMMUNOASSAY METHOD 02/19/2025 10:[address] [facility] Blood Venous blood specimen / Unknown Venipuncture / Unknown 02/19/2025 10:04 PM EDT 02/19/2025 10:07 PM EDT [facility] - 02/19/2025 10:58 PM EDT Less than 99th percentile of normal range cutoff- Female and children under 18 years old <14 ng/L; Male <21 ng/L: Negative Repeat testing should be performed if clinically indicated. Female and children under 18 years old 14-50 ng/L; Male 21-50 ng/L: Consistent with possible cardiac damage and possible increased clinical risk. Serial measurements may help to assess extent of myocardial damage. >50 ng/L: Consistent with cardiac damage, increased clinical risk and myocardial infarction. Serial measurements may help assess extent of myocardial damage. NOTE: Children less than 1 year old may have higher baseline troponin levels and results should be interpreted in conjunction with the overall clinical context. NOTE: Troponin I testing is performed using a different testing methodology at [facility] than at other [facility]. Direct result comparisons should only be made within the same method. Dave Junior MD LAB BLOOD ORDERABLES Final Re sult [facility] [address] [place] [address] * (ABNORMAL) Lactate (02/19/2025 10:04 PM EDT) Pathologist [facility] Lactate 2.5(H) 0.4 - 2.0 mmol/L LAB CHEMISTRY METHOD 02/19/2025 10:[address] [facility] Blood Venous blood specimen / Unknown Venipuncture / Unknown 02/19/2025 10:04 PM EDT 02/19/2025 10:07 PM EDT [facility] - 02/19/2025 10:49 PM EDT Venipuncture immediately after or during the administration of Metamizole may lead to falsely low results. Testing should be performed immediately prior to Metamizole dosing. Dave Junior MD LAB BLOOD ORDERABLES Final Re sult Performing Organization Address City/[facility]/ZIP Co de Phone Number [facility] [address] [place] [address] * (ABNORMAL) B-Type Natriuretic Peptide (02/19/2025 10:04 PM EDT) [facility] BNP 240(H) 0 - 99 pg/mL LAB IMMUNOASSAY METHOD 02/19/2025 10:[address] [facility] Blood Venous blood specimen / Unknown Venipuncture / Unknown 02/19/2025 10:04 PM EDT 02/19/2025 10:07 PM EDT [facility] - 02/19/2025 10:55 PM EDT <100 pg/mL - Heart failure unlikely 100-299 pg/mL - Intermediate probability of acute heart failure exacerbation. Correlate with clinical context and patient history. >=300 pg/mL - Heart Failure likely. Correlate with clinical context and patient history. BNP testing is performed using different testing methodology at [facility] than at other [facility]. Direct result comparisons should only be made within the same method. Dave Junior MD LAB BLOOD ORDERABLES Final Re sult [facility] [address] [place] [address] * Magnesium (02/19/2025 10:04 PM EDT) [facility] Magnesium 1.93 1.60 - 2.40 mg/dL LAB CHEMISTRY METHOD 02/19/2025 10:[address] [facility] Blood Venous blood specimen / Unknown Venipuncture / Unknown 02/19/2025 10:04 PM EDT 02/19/2025 10:07 PM EDT us Dave Junior MD LAB BLOOD ORDERABLES Final Re sult [facility] [address] [place] [address] * (ABNORMAL) Comprehensive Metabolic Panel (02/19/2025 10:04 PM EDT) [facility] Glucose 298(H) 74 - 99 mg/dL LAB CHEMISTRY METHOD 02/19/2025 10:[address] [facility] Sodium 141 136 - 145 mmol/L LAB CHEMISTRY METHOD 02/19/2025 10:[address] [facility] Potassium 4.1 3.5 - 5.3 mmol/L LAB CHEMISTRY METHOD 02/19/2025 10:50 PM [facility] Chloride 111(H) 98 - 107 mmol/L LAB CHEMISTRY METHOD 02/19/2025 10:[address] [facility] Bicarbonate 22 21 - 32 mmol/L LAB CHEMISTRY METHOD 02/19/2025 10:50 PM [facility] Anion Gap 12 10 - 20 mmol/L LAB CHEMISTRY METHOD 02/19/2025 10:[address] [facility] Urea Nitrogen 35(H) 6 - 23 mg/dL LAB CHEMISTRY METHOD 02/19/2025 10:50 PM [facility] Creatinine 1.51(H) 0.50 - 1.30 mg/dL LAB CHEMISTRY METHOD 02/19/2025 10:[address] [facility] eGFR 52(L) >60 mL/min/1. 73m*2 LAB CHEMISTRY METHOD 02/19/2025 10:50 PM [facility] Comment: Calculations of estimated GFR are performed using the 2020 CKD-EPI Study Refit equation without the race variable for the IDMS-Traceable creatinine methods. https://jasn.asnjournals.org/content//ASN.3860201773 Calcium 9.1 8.6 - 10.3 mg/dL LAB CHEMISTRY METHOD 02/19/2025 10:[address] [facility] Albumin 4.2 3.4 - 5.0 g/dL LAB CHEMISTRY METHOD 02/19/2025 10:[address] [facility] Alkaline Phosphatase 126 33 - 136 U/L LAB CHEMISTRY METHOD 02/19/2025 10:[address] [facility] Total Protein 6.3(L) 6.4 - 8.2 g/dL LAB CHEMISTRY METHOD 02/19/2025 10:[address] [facility] AST 13 9 - 39 U/L LAB CHEMISTRY METHOD 02/19/2025 10:[address] [facility] Bilirubin, Total 1.1 0.0 - 1.2 mg/dL LAB CHEMISTRY METHOD 02/19/2025 10:[address] [facility] ALT 20 10 - 52 U/L LAB CHEMISTRY METHOD 02/19/2025 10:[address] [facility] Comment:Patients treated wit h Sulfasalazine may generate falsely decreased results for ALT. Blood Venous blood specimen / Unknown Venipuncture / Unknown 02/19/2025 10:04 PM EDT 02/19/2025 10:07 PM EDT us Dave Junior MD LAB BLOOD ORDERABLES Final Re sult [facility] [address] [place] [address] * (ABNORMAL) CBC and Auto Differential (02/19/2025 10:04 PM EDT) WBC 7.8 4.4 - 11.3 x10*3/uL LAB HEMATOLOGY METHOD 02/19/2025 10:[address] [facility] nRBC 0.0 0.0 - 0.0 /100 WBCs LAB HEMATOLOGY METHOD 02/19/2025 10:[address] [facility] RBC 4.31(L) 4.50 - 5.90 x10*6/uL LAB HEMATOLOGY METHOD 02/19/2025 10:[address] [facility] Hemoglobin 13.3(L) 13.5 - 17.5 g/dL LAB HEMATOLOGY METHOD 02/19/2025 10:27 PM [facility] Hematocrit 39.1(L) 41.0 - 52.0 % LAB HEMATOLOGY METHOD 02/19/2025 10:27 PM [facility] MCV 91 80 - 100 fL LAB HEMATOLOGY METHOD 02/19/2025 10:27 PM [facility] MCH 30.9 26.0 - 34.0 pg LAB HEMATOLOGY METHOD 02/19/2025 10:27 PM [facility] MCHC 34.0 32.0 - 36.0 g/dL LAB HEMATOLOGY METHOD 02/19/2025 10:27 PM [facility] RDW 16.6(H) 11.5 - 14.5 % LAB HEMATOLOGY METHOD 02/19/2025 10:27 PM [facility] Platelets 113(L) 150 - 450 x10*3/uL LAB HEMATOLOGY METHOD 02/19/2025 10:27 PM [facility] Neutrophils % 72.5 40.0 - 80.0 % LAB HEMATOLOGY METHOD 02/19/2025 10:27 PM [facility] Immature Granulocytes %, Automated 0.3 0.0 - 0.9 % LAB HEMATOLOGY METHOD 02/19/2025 10:27 PM [facility] Comment:Immature Granulocyte Count (IG) includes promyelocytes, myelocytes and metamyelocytes but does not include bands. Percent differential counts (%) should be interpreted in the context of the absolute cell counts (cells/UL). Lymphocytes % 18.4 13.0 - 44.0 % LAB HEMATOLOGY METHOD 02/19/2025 10:27 PM [facility] Monocytes % 7.4 2.0 - 10.0 % LAB HEMATOLOGY METHOD 02/19/2025 10:27 PM [facility] Eosinophils % 0.9 0.0 - 6.0 % LAB HEMATOLOGY METHOD 02/19/2025 10:27 PM [facility] Basophils % 0.5 0.0 - 2.0 % LAB HEMATOLOGY METHOD 02/19/2025 10:27 PM [facility] Neutrophils Absolute 5.67 1.20 - 7.70 x10*3/uL LAB HEMATOLOGY METHOD 02/19/2025 10:[address] [facility] Comment:Percent differential counts (%) should be interpreted in the context of the absolute cell counts (cells/uL). Immature Granulocytes Absolute, Automated 0.02 0.00 - 0.70 x10*3/uL LAB HEMATOLOGY METHOD 02/19/2025 10:[address] [facility] Lymphocytes Absolute 1.44 1.20 - 4.80 x10*3/uL LAB HEMATOLOGY METHOD 02/19/2025 10:[address] [facility] Monocytes Absolute 0.58 0.10 - 1.00 x10*3/uL LAB HEMATOLOGY METHOD 02/19/2025 10:[address] [facility] Eosinophils Absolute 0.07 0.00 - 0.70 x10*3/uL LAB HEMATOLOGY METHOD 02/19/2025 10:[address] [facility] Basophils Absolute 0.04 0.00 - 0.10 x10*3/uL LAB HEMATOLOGY METHOD 02/19/2025 10:[address] [facility] Blood Venous blood specimen / Unknown Venipuncture / Unknown 02/19/2025 10:04 PM EDT 02/19/2025 10:07 PM EDT us Dave Junior MD LAB BLOOD ORDERABLES Final Re sult [facility] [address] [place] [address] * Light Blue Top (02/19/2025 10:01 PM EDT) Extra Tube Hold for add-ons. 02/22/2025 8:[address] [facility] Comment:Auto resulted. Blood Venous blood specimen / Unknown 02/19/2025 10:01 PM EDT 02/19/2025 10:07 PM EDT us Dave Junior MD LAB BLOOD ORDERABLES Final Re sult [facility] [address] [place] [address] * Sars-CoV-2 and Influenza A/B PCR (02/19/2025 10:01 PM EDT) Flu A Result Not Detected Not Detected X_PERT XPRESS SARS-COV2 _CEPHEID_ EUA 02/19/2025 10:[address] [facility] Flu B Result Not Detected Not Detected X_PERT XPRESS SARS-COV2 _CEPHEID_ EUA 02/19/2025 10:[address] [facility] Coronavirus 2019, PCR Not Detected Not Detected X_PERT XPRESS SARS-COV2 _CEPHEID_ EUA 02/19/2025 10:[address] [facility] Swab Nasopharyngeal swab / Unknown 02/19/2025 10:01 PM EDT 02/19/2025 10:07 PM EDT [facility] - 02/19/2025 10:47 PM EDT This assay is an FDA-cleared, in vitro diagnostic nucleic acid amplification test for the qualitative detection and differentiation of SARS CoV-2/ Influenza A/B from nasopharyngeal specimens collected from individuals with signs and symptoms of respiratory tract infections, and has been validated for use at [facility]. Negative results do not preclude COVID-19/ Influenza A/B infections and should not be used as the sole basis for diagnosis, treatment, or other management decisions. Testing for SARS CoV-2 is recommended only for patients who meet current clinical and/or epidemiological criteria defined by federal, state, or local public health directives. Dave Junior MD LAB MOLECULAR DIAGNOSTICS ORD ERABLES Final Result [facility] [address] [place] [address] documented in this encounter Visit Diagnoses Diagnosis Acute hypoxic respiratory failure- Primary Hypoxia Hypoxemia Dyspnea, unspecified type Chronic systolic heart failure Acute hypoxic respiratory failure Coronary artery disease with history of percutaneous transluminal angioplasty (PTCA) Chronic obstructive pulmonary disease, unspecified COPD type (Multi) CHF (congestive heart failure), NYHA class II, chronic, combined COPD (chronic obstructive pulmonary disease) (Multi) Chronic airway obstruction, not elsewhere classified Coronary artery disease with history of percutaneous transluminal angioplasty (PTCA) Essential hypertension Unspecified essential hypertension Lactic acidosis Acidosis Stage 3a chronic kidney disease (Multi) Thrombocytopenia Unspecified thrombocytopenia Type 2 diabetes mellitus with hyperglycemia, without long-term current use of insulin documented in this encounter Admitting Diagnoses Diagnosis Acute hypoxic respiratory failure documented in this encounter Administered Medications Inactive Administered Medications - up to 3 most recent administrations Medication Order MAR Action Action Date Dose Rate Site acetaminophen (Tylenol) oral liquid 650 mg 650 mg, nasogastric tube, Every 4 hours PRN, fever (temp greater than 38.0 C), first line, Starting on 02/20/25 at 0213 acetaminophen (Tylenol) suppository 650 mg 650 mg, rectal, Every 4 hours PRN, fever (temp greater than 38.0 C), first line, Starting on 02/20/25 at 0213, If ordered PRN for pain, nurse is permitted to administer this medication for higher pain scores based on patient preference? Yes acetaminophen (Tylenol) tablet 650 mg 650 mg, oral, Every 4 hours PRN, fever (temp greater than 38.0 C), first line, pain mild (1-3), first line, headaches, Starting on 02/20/25 at 0213, If ordered PRN for pain, nurse is permitted to administer this medication for higher pain scores based on patient preference? Yes aspirin EC tablet 81 mg 81 mg, oral, Daily, First dose on 02/20/25 at 0900, Do not crush, chew, or split. Given 02/21/2025 9:23 AM EDT 81 mg Given 02/20/2025 8:14 AM EDT 81 mg atorvastatin (Lipitor) tablet 80 mg 80 mg, oral, Nightly, First dose on 02/20/25 at 2100 Given 02/20/2025 9:34 PM EDT 80 mg carvedilol (Coreg) tablet 3.125 mg 3.125 mg, oral, 2 times daily, First dose (after last modification) on 02/21/25 at 2100 carvedilol (Coreg) tablet 6.25 mg 6.25 mg, oral, 2 times daily, First dose on 02/20/25 at 0900 Given 02/20/2025 9:34 PM EDT 6.25 mg Given 02/20/2025 8:14 AM EDT 6.25 mg clopidogrel (Plavix) tablet 75 mg 75 mg, oral, Daily, First dose on 02/20/25 at 0900 Given 02/21/2025 9:23 AM EDT 75 mg Given 02/20/2025 8:14 AM EDT 75 mg empagliflozin (Jardiance) tablet 10 mg 10 mg, oral, Daily, First dose on 02/20/25 at 0900, Please hold this med 72 hours prior to an NPO event in duration of 12 hours or more. Given 02/21/2025 9:23 AM EDT 10 mg Given 02/20/2025 8:14 AM EDT 10 mg enoxaparin (Lovenox) syringe 40 mg 40 mg, subcutaneous, Every 24 hours, First dose on 02/20/25 at 0900, Indications: deep vein thrombosis preventionIndications:deep vein thrombosis prevention Given 02/21/2025 9:23 AM EDT 40 mg Right Lower Abdomen Given 02/20/2025 8:14 AM EDT 40 mg Le ft Lower Abdomen furosemide (Lasix) injection 20 mg 20 mg, intravenous, Once, On 02/20/25 at 1100, For 1 dose, For doses less than or = 160 mg, give IV push at maximum rate of 40 mg/min For doses greater than 160 mg, dilute in 50 mL and administer at 4 mg/min Given 02/20/2025 12:03 PM EDT 20 mg insulin lispro injection 0-10 Units 0-10 Units, subcutaneous, 3 times daily before meals, First dose on 02/20/25 at 0700, Do not hold when patient is not eating, continue order as scheduled for hyperglycemia management. Insulin Lispro Corrective Scale #2 Hypoglycemia protocol Call LIP unit(s) if Blood Glucose is between 0 - 70 mg/dL 0 unit(s) if Blood glucose is between 71-150 2 unit(s) if Blood glucose is between 151-200 4 unit(s) if Blood glucose is between 201-250 6 unit(s) if Bloodglucose is between 251-300 8 unit(s) if Blood glucose is between 301-350 10 unit(s) if Blood glucose is between 351-400 If blood glucose is greater than 400 mg/dL, give max insulin per sliding scale AND then contact provider. Given 02/21/2025 11:55 AM EDT 2 Units Left Upper Arm (Back ) Given 02/21/2025 9:22 AM EDT 1 Units Le ft Upper Arm (Back) Given 02/20/2025 5:08 PM EDT 2 Units Ri ght Upper Arm (Back) iohexol (OMNIPaque) 350 mg iodine/mL solution 75 mL 75 mL, intravenous, Once in imaging, Starting on Sat02/19/25 at 2330, For 1 dose Given 02/19/2025 11:46 PM EDT 75 mL ipratropium-albuteroL (Duo-Neb) 0.5-2.5 mg/3 mL nebulizer solution 3 mL 3 mL, nebulization, Every 6 hours while awake RT, First dose on 02/20/25 at 0700 Given 02/21/2025 1:04 PM EDT 3 mL Given 02/21/2025 8:16 AM EDT 3 mL Given 02/20/2025 8:17 PM EDT 3 mL methylPREDNISolone sod succinate (SOLU-Medrol) injection 125 mg 125 mg, intravenous, Once, On 02/20/25 at 0100, For 1 dose Given 02/20/2025 2:02 AM EDT 125 mg ondansetron (Zofran) injection 4 mg 4 mg, intravenous, Every 8 hours PRN, nausea/vomiting, first line, Starting on 02/20/25 at 0213, 1st Line. Give IV if patient is unable to take orally. If inadequate response within 60 minutes, proceed to next-line agent for same PRN reason or contact provider if no further options ordered. When administering via IV Push, administer over 3-5 minutes. ondansetron (Zofran) tablet 4 mg 4 mg, oral, Every 8 hours PRN, nausea/vomiting, first line, Starting on 02/20/25 at 0213, 1st Line. Use oral route first, if possible. If inadequate response within 60 minutes, proceed to next-line agent for same PRN reason or contact provider if no further options ordered. oxygen (O2) therapy inhalation, Continuous - Inhalation, First dose on 02/20/25 at 0230, Device: Nasal Cannula, Rate in liters per minute: 5 LPM, Keep O2 Sat Above: 92% Rate Verify Medical Gas 02/21/2025 9:23 AM EDT 2 L/min Start 02/20/2025 8:19 PM EDT 5 L/min Rate Verify Medical Gas 02/20/2025 8:16 AM EDT 5 L/min pantoprazole (ProtoNix) EC tablet 40 mg 40 mg, oral, Daily, First dose on 02/20/25 at 0600, Do not crush, chew, or split. Given 02/21/2025 5:54 AM EDT 40 mg Given 02/20/2025 5:42 AM EDT 40 mg perflutren lipid microspheres (Definity) injection 0.5-10 mL of dilution 0.5-10 mL of dilution, intravenous, Once in imaging, Starting on 02/20/25 at 0957, For 1 dose, CV Medications, Contrast - for use by imaging provider only. Prior to administration, Definity product must be activated. First, bring vial to room temperature. Then, shake vial for 45 seconds. Do not use if the 45 second activation cycle has not been completed. Following activation, the product will appear as a milky white suspension and may be used immediately. If not used within 5 minutes of activation, re-suspend by inverting and shaking the vial for 10 seconds. Discard unused product. Administration: Dilute 1.3 mL of activated DEFINITY with 8.7 mL of normal saline in a 10 mL syringe. Inject 0.5 mL of diluted DEFINITY when notified the images/film are unclear to enhance view of Left Ventricular borders. Repeat 0.5 mL of DEFINITY until clear images are obtained, not to exceed 10 mLs. Once images are obtained or limit of medication is reached, flush line with 10 mL of Normal Saline. Given 02/20/2025 9:57 AM EDT 3.5 mL of dilution sacubitriL-valsartan (Entresto) 24-26 mg per tablet 1 tablet 1 tablet, oral, 2 times daily, First dose on 02/20/25 at 0900, Contraindicated in combination with RHETT inhibitors. Ensure a minimum of 36 hours between any RHETT inhibitor dose and sacubitril-valsartan. Given 02/21/2025 9:23 AM EDT 1 tablet Given 02/20/2025 9:34 PM EDT 1 tablet Given 02/20/2025 8:16 AM EDT 1 tablet spironolactone (Aldactone) tablet 12.5 mg 12.5 mg, oral, Daily, First dose on 02/20/25 at 0900 Given 02/21/2025 9:23 AM EDT 12.5 mg Given 02/20/2025 8:14 AM EDT 12.5 mg tiotropium (Spiriva Respimat) 2.5 mcg/actuation inhaler 2 puff 2 puff, inhalation, Daily RT, First dose on 02/20/25 at 1500, Instruct to hold breath for a few seconds after each inhalation. Before first use, prime inhaler by actuating until aerosal cloud is seen, then actuating 3 more times. Label inhaler with 3 month expiration date after inserting canister. Given 02/21/2025 5:55 AM EDT 2 puffs Given 02/20/2025 5:07 PM EDT 2 puffs documented in this encounter Active and Recently Administered Medications Times are shown in EDT. Scheduled Medication Order 02/19/2025 02/20/2025 02/21/2025 aspirin EC tablet 81 mg 81 mg, oral, Daily, First dose on 02/20/25 at 0900, Do not crush, chew, or split. 0814 (Given - Provider: Marce Small RN) 0923 (Given - Provider: Marce Small RN) atorvastatin (Lipitor) tablet 80 mg 80 mg, oral, Nightly, First dose on 02/20/25 at 2100 213 (Given - Provider: Irvin Olvera RN) carvedilol (Coreg) tablet 3.125 mg 3.125 mg, oral, 2 times daily, First dose (after last modification) on 02/21/25 at 2100 carvedilol (Coreg) tablet 6.25 mg (CANCELED) 6.25 mg, oral, 2 times daily, First dose on 02/20/25 at 0900 0814 (Given - Provider: Marce Small RN)4 (Given - Provider: Irvin Olvera RN) 0923 (Not Given - Provider: Marce Small RN - Reason: Other - Comment: hold per Dr Davidson for low HR) clopidogrel (Plavix) tablet 75 mg 75 mg, oral, Daily, First dose on 02/20/25 at 0900 813 (Given - Provider: Marce Small RN) 922 (Given - Provider: Marce Small RN) empagliflozin (Jardiance) tablet 10 mg 10 mg, oral, Daily, First dose on 02/20/25 at 0900, Please hold this med 72 hours prior to an NPO event in duration of 12 hours or more. 813 (Given - Provider: Marce Small RN) 922 (Given - Provider: Marce Small RN) enoxaparin (Lovenox) syringe 40 mg 40 mg, subcutaneous, Every 24 hours, First dose on 02/20/25 at 0900, Indications: deep vein thrombosis prevention 813 (Given - Provider: Marce Small RN) 922 (Given - Provider: Marce Small RN) furosemide (Lasix) injection 20 mg (COMPLETED) 20 mg, intravenous, Once, On 02/20/25 at 1100, For 1 dose, For doses less than or = 160 mg, give IV push at maximum rate of 40 mg/min For doses greater than 160 mg, dilute in 50 mL and administer at 4 mg/min 1203 (Given - Provider: Marce Small RN - Comment: pt in bathroom) insulin lispro injection 0-10 Units 0-10 Units, subcutaneous, 3 times daily before meals, First dose on 02/20/25 at 0700, Do not hold when patient is not eating, continue order as scheduled for hyperglycemia management. Insulin Lispro Corrective Scale #2 Hypoglycemia protocol Call LIP unit(s) if Blood Glucose is between 0 - 70 mg/dL 0 unit(s) if Blood glucose is between 71-150 2 unit(s) if Blood glucose is between 151-200 4 unit(s) if Blood glucose is between 201-250 6 unit(s) if Bloodglucose is between 251-300 8 unit(s) if Blood glucose is between 301-350 10 unit(s) if Blood glucose is between 351-400 If blood glucose is greater than 400 mg/dL, give max insulin per sliding scale AND then contact provider. 813 (Given - Provider: Marce Small RN - Comment: flexible meal times)1203 (Given - Provider: Marce Small, PATRICK)1708 (Given - Provider: Marce Small RN - Comment: flexible meal times) 0922 (Given - Provider: Marce Small RN - Comment: nursing work flow)1155 (Given - Provider: Marce Small, PATRICK)1618 (Not Given - Provider: Marce Small RN - Reason: Patient/family refused) iohexol (OMNIPaque) 350 mg iodine/mL solution 75 mL (COMPLETED) 75 mL, intravenous, Once in imaging, Starting on 02/19/25 at 2330, For 1 dose 2346 (Given - Provider: Kyree Hernandez) ipratropium-albuteroL (Duo-Neb) 0.5-2.5 mg/3 mL nebulizer solution 3 mL 3 mL, nebulization, Every 6 hours while awake RT, First dose on 02/20/25 at 0700 0642 (Given - Provider: Irena Hackett, STUDENT FINANCE SPECIALIST)1210 (Given - Provider: Irena Hackett, WILMER)2017 (Given - Provider: Evangelina York) 0816 (Given - Provider: Diana Ledesma, ADJUSTER LEADER - Comment: other pt care)1304 (Given - Provider: Irena Hackett, WILMER) methylPREDNISolone sod succinate (SOLU-Medrol) injection 125 mg (COMPLETED) 125 mg, intravenous, Once, On 02/20/25 at 0100, For 1 dose 0202 (Given - Provider: Sarah Kiser, PATRICK) oxygen (O2) therapy inhalation, Continuous - Inhalation, First dose on 02/20/25 at 0230, Device: Nasal Cannula, Rate in liters per minute: 5 LPM, Keep O2 Sat Above: 92% 0217 (Start - Provider: Summer Denise, PATRICK)0816 (Rate Ver[employer] Medical [employer] - Provider: Marce Small RN)2019 (Start - Provider: Evangelina York) 0923 (Rate [employer] Medical [employer] - Provider: Marce Small RN - Comment: nursing work flow) pantoprazole (ProtoNix) EC tablet 40 mg 40 mg, oral, Daily, First dose on 02/20/25 at 0600, Do not crush, chew, or split. 0542 (Given - Provider: Summer Denise, PATRICK) 0554 (Given - Provider: Irvin Olvera, RN) perflutren lipid microspheres (Definity) injection 0.5-10 mL of dilution (COMPLETED) 0.5-10 mL of dilution, intravenous, Once in imaging, Starting on 02/20/25 at 0957, For 1 dose, CV Medications, Contrast - for use by imaging provider only. Prior to administration, Definity product must be activated. First, bring vial to room temperature. Then, shake vial for 45 seconds. Do not use if the 45 second activation cycle has not been completed. Following activation, the product will appear as a milky white suspension and may be used immediately. If not used within 5 minutes of activation, re-suspend by inverting and shaking the vial for 10 seconds. Discard unused product. Administration: Dilute 1.3 mL of activated DEFINITY with 8.7 mL of normal saline in a 10 mL syringe. Inject 0.5 mL of diluted DEFINITY when notified the images/film are unclear to enhance view of Left Ventricular borders. Repeat 0.5 mL of DEFINITY until clear images are obtained, not to exceed 10 mLs. Once images are obtained or limit of medication is reached, flush line with 10 mL of Normal Saline. 0957 (Given - Provider: Eliazar Christianson) polyethylene glycol (Glycolax, Miralax) packet 17 g 17 g, oral, Daily, First dose on 02/20/25 at 0900, Bowel Regimen - for prevention of constipation. 0816 (Not Given - Provider: Marce Small RN - Reason: Patient/family refused) 0923 (Not Given - Provider: Marce Small RN - Reason: Patient/family refused) sacubitriL-valsartan (Entresto) 24-26 mg per tablet 1 tablet 1 tablet, oral, 2 times daily, First dose on 02/20/25 at 0900, Contraindicated in combination with RHETT inhibitors. Ensure a minimum of 36 hours between any HRETT inhibitor dose and sacubitril-valsartan. 0816 (Given - Provider: Marce Small RN)4 (Given - Provider: Irvin Olvera, PATRICK) 0923 (Given - Provider: Marce Small RN) spironolactone (Aldactone) tablet 12.5 mg 12.5 mg, oral, Daily, First dose on 02/20/25 at 0900 0814 (Given - Provider: Marce Small RN) 0923 (Given - Provider: Marce Small RN) tiotropium (Spiriva Respimat) 2.5 mcg/actuation inhaler 2 puff 2 puff, inhalation, Daily RT, First dose on 02/20/25 at 1500, Instruct to hold breath for a few seconds after each inhalation. Before first use, prime inhaler by actuating until aerosal cloud is seen, then actuating 3 more times. Label inhaler with 3 month expiration date after inserting canister. 1707 (Given - Provider: Marce Small RN - Comment: nursing work flow) 3089 (Given - Provider: Irvin Olvera RN) PRN Medication Order 02/19/2025 02/20/2025 02/21/2025 acetaminophen (Tylenol) oral liquid 650 mg(Linked Group 1) 650 mg, nasogastric tube, Every 4 hours PRN, fever (temp greater than 38.0 C), first line, Starting on 02/20/25 at 0213 acetaminophen (Tylenol) suppository 650 mg(Linked Group 1) 650 mg, rectal, Every 4 hours PRN, fever (temp greater than 38.0 C), first line, Starting on 02/20/25 at 0213, If ordered PRN for pain, nurse is permitted to administer this medication for higher pain scores based on patient preference? Yes acetaminophen (Tylenol) tablet 650 mg(Linked Group 1) 650 mg, oral, Every 4 hours PRN, fever (temp greater than 38.0 C), first line, pain mild (1-3), first line, headaches, Starting on 02/20/25 at 0213, If ordered PRN for pain, nurse is permitted to administer this medication for higher pain scores based on patient preference? Yes dextrose 50 % injection 12.5 g 12.5 g, intravenous, Every 15 min PRN, For blood glucose 41 to 70 mg/dL, Starting on 02/20/25 at 0213, May repeat until blood glucose level reaches 100 mg/dL or greater. Push 2 - 3 mL/minute if patient has secure IV access. dextrose 50 % injection 25 g 25 g, intravenous, Every 15 min PRN, For blood glucose less than or equal to 40 mg/dL, Starting on 02/20/25 at 0213, May repeat until blood glucose level reaches 100 mg/dL or greater. Push 2 - 3 mL/minute if patient has secure IV access. glucagon (Glucagen) injection 1 mg 1 mg, intramuscular, Every 15 min PRN, blood glucose less than or equal to 40 mg/dL - see comments, For blood glucose less than or equal to 40 mg/dL and no IV access, Starting on 02/20/25 at 0213, Give until blood glucose is 100 mg/dL or greater. If patient DOES NOT HAVE secure IV access & patient is unconscious, NPO or is unable to eat or drink. glucagon (Glucagen) injection 1 mg 1 mg, intramuscular, Every 15 min PRN, blood glucose 41 to 70 mg/dL - see comments, For blood glucose 41 to 70 mg/dL and no IV access, Starting on 02/20/25 at 0213, Give until blood glucose is 100 mg/dL or greater. If patient DOES NOT HAVE secure IV access & patient is unconscious, NPO or is unable to eat or drink. melatonin tablet 3 mg 3 mg, oral, Nightly PRN, sleep, Starting on 02/20/25 at 0213 ondansetron (Zofran) injection 4 mg(Linked Group 2) 4 mg, intravenous, Every 8 hours PRN, nausea/vomiting, first line, Starting on 02/20/25 at 0213, 1st Line. Give IV if patient is unable to take orally. If inadequate response within 60 minutes, proceed to next-line agent for same PRN reason or contact provider if no further options ordered. When administering via IV Push, administer over 3-5 minutes. ondansetron (Zofran) tablet 4 mg(Linked Group 2) 4 mg, oral, Every 8 hours PRN, nausea/vomiting, first line, Starting on 02/20/25 at 0213, 1st Line. Use oral route first, if possible. If inadequate response within 60 minutes, proceed to next-line agent for same PRN reason or contact provider if no further options ordered. Linked Groups Order Group 1: acetaminophen (Tylenol) tablet 650 mgJump to med 650 mg, oral, Every 4 hours PRN, fever (temp greater than 38.0 C), first line, pain mild (1-3), first line, headaches, Starting on 02/20/25 at 0213, If ordered PRN for pain, nurse is permitted to administer this medication for higher pain scores based on patient preference? Yes Or acetaminophen (Tylenol) oral liquid 650 mgJump to med 650 mg, nasogastric tube, Every 4 hours PRN, fever (temp greater than 38.0 C), first line, Starting on 02/20/25 at 0213 Or acetaminophen (Tylenol) suppository 650 mgJump to med 650 mg, rectal, Every 4 hours PRN, fever (temp greater than 38.0 C), first line, Starting on 02/20/25 at 0213, If ordered PRN for pain, nurse is permitted to administer this medication for higher pain scores based on patient preference? Yes Group 2: ondansetron (Zofran) tablet 4 mgJump to med 4 mg, oral, Every 8 hours PRN, nausea/vomiting, first line, Starting on 02/20/25 at 0213, 1st Line. Use oral route first, if possible. If inadequate response within 60 minutes, proceed to next-line agent for same PRN reason or contact provider if no further options ordered. Or ondansetron (Zofran) injection 4 mgJump to med 4 mg, intravenous, Every 8 hours PRN, nausea/vomiting, first line, Starting on 02/20/25 at 0213, 1st Line. Give IV if patient is unable to take orally. If inadequate response within 60 minutes, proceed to next-line agent for same PRN reason or contact provider if no further options ordered. When administering via IV Push, administer over 3-5 minutes. documented in this encounter Additional Health Concerns Infection Onset Date Last Indicated Resolved Time COVID-19 Rule-Out 02/19/2025 02/19/2025 02/19/2025 10:47 PM EDT Influenza Rule-out 02/19/2025 02/19/2025 10:47 PM EDT documented as of this encounter Care Teams [employer] Relationship Specialty Start Date End Date Winston Paul DO [address] [facility]- [address] [address] PCP - General Family Medicine 02/19/25 documented as of this encounter
[2025-03-07 09:19] VITALS: BP 181/93; PULSE 71; TEMP 36.8; O2SAT 95; BMI 28.6
--- OUTSIDE RECORDS SUMMARY | 2025-03-07 09:29 | XMS_ITS | Clinical Summary ---
Author Organization [facility] Address [address] [place] [address] Phone Care Team Providers Care Tip Finisher Name Role Phone Winston Paul DO Primary Care Provider [phone] Allergies No known active allergies Medications aspirin 81 mg EC tabletIndications :Coronary artery disease with history of percutaneous transluminal angioplasty (PTCA) Take 1 tablet (81 mg) by mouth once daily. 30 tablet 1 5 04/23/20 25 Active atorvastatin (Lipitor) 80 mg tabletIndications :Coronary artery disease with history of percutaneous transluminal angioplasty (PTCA) Take 1 tablet (80 mg) by mouth once daily at bedtime. 30 tablet 1 5 04/22/20 25 Active carvedilol (Coreg) 3.125 mg tabletIndications :Coronary artery disease with history of percutaneous transluminal angioplasty (PTCA) Take 1 tablet (3.125 mg) by mouth 2 times a day. 60 tablet 1 5 04/22/20 25 Active clopidogrel (Plavix) 75 mg tabletIndications :Coronary artery disease with history of percutaneous transluminal angioplasty (PTCA) Take 1 tablet (75 mg) by mouth once daily. 30 tablet 1 5 04/23/20 25 Active empagliflozin (Jardiance) 10 mg tabletIndications :Chronic systolic heart failure Take 1 tablet (10 mg) by mouth once daily. 30 tablet 1 5 04/23/20 25 Active sacubitriL-valsar croft (Entresto) 24-26 mg tabletIndications :Chronic systolic heart failure Take 1 tablet by mouth 2 times a day. 60 tablet 1 5 04/22/20 25 Active spironolactone (Aldactone) 25 mg tabletIndications :Chronic systolic heart failure Take 0.5 tablets (12.5 mg) by mouth once daily. 15 tablet 1 5 04/23/20 25 Active tiotropium (Spiriva Respimat) 2.5 mcg/actuation inhalerIndication s:Chronic obstructive pulmonary disease, unspecified COPD type (Multi) Inhale 2 puffs once daily. 8 g 11 5 Active ipratropium-albut Aaron (Combivent Respimat) 20-100 mcg/actuation inhalerIndication s:Chronic obstructive pulmonary disease, unspecified COPD type (Multi) Inhale 2 puffs 4 times a day as needed for wheezing. 1 g 3 5 Active acetaminophen (Tylenol) 325 mg tablet Take 2 tablets (650 mg) by mouth every 4 hours if needed. 5 Active isosorbide mononitrate ER (Imdur) 30 mg 24 hr tablet Take 1 tablet (30 mg) by mouth once daily. Active nicotine (Nicoderm CQ) 21 mg/[address] 21 mg on the skin once every 24 hours. Active pantoprazole (ProtoNix) 40 mg EC tablet Take 1 tablet (40 mg) by mouth once daily in the morning. Take before meals. Active aspirin 81 mg EC tablet Take 1 tablet (81 mg) by mouth once daily. Active atorvastatin (Lipitor) 80 mg tablet Take 1 tablet (80 mg) by mouth once daily. Active clopidogrel (Plavix) 75 mg tablet Take 1 tablet (75 mg) by mouth once daily. Active hydrALAZINE (Apresoline) 25 mg tablet Take 1 tablet (25 mg) by mouth 2 times a day. 5 02/22/20 Discontinu ed(Stop Taking at Discharge) Procardia XL 60 mg 24 hr tablet Take 1 tablet (60 mg) by mouth once daily in the morning. Take before meals. 5 02/22/20 Discontinu ed(Stop Taking at Discharge) Coreg 6.25 mg tablet Take 0.5 tablets (3.125 mg) by mouth 2 times a day. 02/22/20 Discontinu ed(Stop Taking at Discharge) Active Problems Problem Noted Date Diagnosed Date Acute hypoxic respiratory failure 02/20/2025 CHF (congestive heart failur e), NYHA class II, chronic, combined 02/20/2025 COPD (chronic obstructive pulmonary disease) (Mu lti) 02/20/2025 Coronary artery disease with history of percutaneous transluminal angioplasty (PTCA) 02/20/2025 Essential hypertension 02/20/2025 Lactic acidosis 02/20/2025 Stage 3a chronic kidney disease (Multi) 02/21/20 Thrombocytopenia 02/20/2025 Type 2 diabetes mellitus wit h hyperglycemia, without long-term current use of insulin 02/20/2025 Encounters Date Type Department Care Team Description 02/23/2025 8:01 PM EDT - 02/23/2025 11:59 PM EDT Hospital Encounter [address] [phone] Discharge Disposition: Home 02/19/2025 9:46 PM EDT - 02/21/2025 4:35 PM EDT Hospital Encounter [facility] 8 Cardiac Intensive Care [address] [place] [phone] Dave Junior MD Weingart, Robert J, MD Alahmad, Alaa, MD Acute hypoxic respiratory failure (Primary Dx); Hypoxia; Dyspnea, unspecified type; Chronic systolic heart failure; Coronary artery disease with history of percutaneous transluminal angioplasty (PTCA); Chronic obstructive pulmonary disease, unspecified COPD type (Multi) Discharge Disposition: Home 02/19/2025 Travel from Last 3 Months Social History Tobacco Use Types Packs/Day Years [...] on file Sexual Orientation Not on file Last Filed Vital Signs Vital Sign Reading [...] Mass Index 27.18 02/20/2025 2:14 AM EDT Plan of Treatment Health Maintenance Due Date Last Done Comments CT Colonography 1965 Diabetes: Urine Protein Screening 1965 FIT-DNA (Cologuard) 1965 FIT 1965 HIV Screening 1965 Lipid Panel 1965 Sigmoidoscopy 1965 Yearly Adult Physical 1965 MMR Vaccines (1 of 1 - Standard series) 1964 Diabetes: Retinopathy Screening 1973 Hepatitis C Screening 1981 Pneumococcal Vaccine (1 of 2 - PCV) 1982 DTaP/Tdap/Td Vaccines (1 - Tdap) 1985 Zoster Vaccines (1 of 2) 2013 Colonoscopy 06/30/2022 06/30/2012 Colorectal Cancer Screening 06/30/2022 RSV High Risk: (Elderly (60+ ) or Population) (1 - Risk 60-74 years 1-dose series) 2023 COVID-19 Vaccine (1 - 2023-2 5 season) 2024 Influenza Vaccine (#1) 2025 Diabetes: Hemoglobin A1C 05/22/2025 02/19/2025 Echocardiogram 02/20/2026 02/20/2025 Creatinine Level 02/21/2026 02/21/2025, 02/20/2025, 02/19/2025 Potassium Level 02/21/2026 02/21/2025, 02/20/2025, 02/19/2025 HIB Vaccines Aged Out No longer eligi ble based on patient's age to complete this topic HPV Vaccines (No Doses Required) Completed Hepatitis A Vaccines Aged Out No long er eligible based on patient's age to complete this topic Hepatitis B Vaccines Aged Out No long er eligible based on patient's age to complete this topic IPV Vaccines Aged Out No longer eligi ble based on patient's age to complete this topic Meningococcal Vaccine Aged Out No nick dm eligible based on patient's age to complete this topic Rotavirus Vaccines Aged Out No longer eligible based on patient's age to complete this topic Procedures Procedure Name Priority Date/Time Associated Diagnosis [...] POCT GLUCOSE Routine 02/21/2025 6:37 AM EDT BASIC METABOLIC PANEL Routine 02/21/2025 5:37 AM EDT CBC Routine 02/21/2025 5:37 AM EDT POCT GLUCOSE Routine 02/20/2025 8:20 PM EDT POCT GLUCOSE Routine 02/20/2025 3:37 PM EDT POCT GLUCOSE Routine 02/20/2025 11:04 AM EDT TRANSTHORACIC ECHO (TTE) COMPLETE WITH CONTRAST Routine 02/20/2025 9:52 AM EDT Chronic systolic heart failure POCT GLUCOSE Routine 02/20/2025 6:51 AM EDT BASIC METABOLIC PANEL Routine 02/20/2025 5:48 AM EDT CBC Routine 02/20/2025 5:48 AM EDT POCT GLUCOSE [...] 1 HOUR STAT 02/19/2025 11:02 PM EDT HEMOGLOBIN A1C Add-On 02/19/2025 10:04 PM EDT SERIAL TROPONIN-INITIAL STAT 02/19/2025 10:04 PM EDT LACTATE STAT 02/19/2025 10:04 PM EDT B-TYPE NATRIURETIC PEPTIDE STAT 02/19/2025 10:04 PM EDT MAGNESIUM STAT 02/19/2025 10:04 PM EDT COMPREHENSIVE METABOLIC PANEL STAT 02/19/2025 10:04 PM EDT CBC WITH AUTO DIFFERENTIAL STAT 02/19/2025 10:04 PM EDT TROPONIN SERIES- (INITIAL, 1 HR) STAT 02/19/2025 10:04 PM EDT LIGHT BLUE TOP Routine 02/19/2025 10:01 PM EDT EXTRA TUBES Routine 02/19/2025 10:01 PM EDT SARS-COV-2 AND INFLUENZA A/B PCR STAT 02/19/2025 10:01 PM EDT ECG 12-LEAD STAT [...] note for full interpretation and clinical correlation from Last 3 Months Results * (ABNORMAL) POCT GLUCOSE (02/21/2025 3:19 PM EDT) [facility] POCT Glucose 190(H) 74 - 99 mg/dL 02/21/2025 3:21 PM EDT [facility] Blood Capillary blood specimen / Unknown 02/21/2025 3:19 PM EDT 02/21/2025 3:21 PM EDT us Lizbet Aguirre MD LAB POINT OF CARE TE ST DOCKED DEVICE UNSOLICITED RESULTS Final Result [facility] [address] [place], [place] [id number] * (ABNORMAL) POCT GLUCOSE (02/21/2025 11:05 AM EDT) POCT Glucose 182(H) 74 - 99 mg/dL 02/21/2025 11:07 AM EDT [facility] Blood Capillary blood specimen / Unknown 02/21/2025 11:05 AM EDT 02/21/2025 11:07 AM EDT us Lizbet Aguirre MD LAB POINT OF CARE TE ST DOCKED DEVICE UNSOLICITED RESULTS Final Result Performing Organization Address City/[facility]/ZIP Co de Phone Number [facility] [address] [place] [address] * (ABNORMAL) POCT GLUCOSE (02/21/2025 6:37 AM EDT) [facility] POCT Glucose 154(H) 74 - 99 mg/dL 02/21/2025 6:38 AM EDT [facility] Blood Capillary blood specimen / Unknown 02/21/2025 6:37 AM EDT 02/21/2025 6:38 AM EDT us Lizbet Aguirre MD LAB POINT OF CARE TE ST DOCKED DEVICE UNSOLICITED RESULTS Final Result Performing Organization Address City/[facility] Co de Phone Number [facility] [address] [place] [address] * (ABNORMAL) CBC (02/21/2025 5:37 AM EDT) Only the most recent of2 resultswithin the time period is included. WBC 9.2 4.4 - 11.3 x10*3/uL LAB HEMATOLOGY METHOD 02/21/2025 7:30 AM EDT [facility] nRBC 0.0 0.0 - 0.0 /100 WBCs LAB HEMATOLOGY METHOD 02/21/2025 7:30 AM EDT [facility] RBC 4.54 4.50 - 5.90 x10*6/uL LAB HEMATOLOGY METHOD 02/21/2025 7:30 AM EDT [facility] Hemoglobin 14.0 13.5 - 17.5 g/dL LAB HEMATOLOGY METHOD 02/21/2025 7:30 AM EDT [facility] Hematocrit 41.2 41.0 - 52.0 % LAB HEMATOLOGY METHOD 02/21/2025 7:30 AM EDT [facility] MCV 91 80 - 100 fL LAB HEMATOLOGY METHOD 02/21/2025 7:30 AM EDT [facility] MCH 30.8 26.0 - 34.0 pg LAB HEMATOLOGY METHOD 02/21/2025 7:30 AM EDT [facility] MCHC 34.0 32.0 - 36.0 g/dL LAB HEMATOLOGY METHOD 02/21/2025 7:30 AM EDT [facility] RDW 16.6(H) 11.5 - 14.5 % LAB HEMATOLOGY METHOD 02/21/2025 7:30 AM EDT [facility] Platelets 109(L) 150 - 450 x10*3/uL LAB HEMATOLOGY METHOD 02/21/2025 7:30 AM EDT [facility] Blood Venous blood specimen / Unknown Venipuncture / Unknown 02/21/2025 5:37 AM EDT 02/21/2025 6:13 AM EDT us Loi Golden MD LAB BLOOD ORDERABLES Final Result [facility] [address] [place] [address] * (ABNORMAL) Basic metabolic panel (02/21/2025 5:37 AM EDT) Only the most recent of2 resultswithin the time period is included. Glucose 147(H) 74 - 99 mg/dL LAB CHEMISTRY METHOD 02/21/2025 6:48 AM EDT [facility] Sodium 140 136 - 145 mmol/L LAB CHEMISTRY METHOD 02/21/2025 6:48 AM EDT [facility] Potassium 4.0 3.5 - 5.3 mmol/L LAB CHEMISTRY METHOD 02/21/2025 6:48 AM EDT [facility] Chloride 107 98 - 107 mmol/L LAB CHEMISTRY METHOD 02/21/2025 6:48 AM EDT [facility] Bicarbonate 26 21 - 32 mmol/L LAB CHEMISTRY METHOD 02/21/2025 6:48 AM EDT [facility] Anion Gap 11 10 - 20 mmol/L LAB CHEMISTRY METHOD 02/21/2025 6:48 AM EDT [facility] Urea Nitrogen 30(H) 6 - 23 mg/dL LAB CHEMISTRY METHOD 02/21/2025 6:48 AM EDT [facility] Creatinine 1.47(H) 0.50 - 1.30 mg/dL LAB CHEMISTRY METHOD 02/21/2025 6:48 AM EDT [facility] eGFR 54(L) >60 mL/min/1. 73m*2 LAB CHEMISTRY METHOD 02/21/2025 6:48 AM EDT [facility] Comment: Calculations of estimated GFR are performed using the 2020 CKD-EPI Study Refit equation without the race variable for the IDMS-Traceable creatinine methods. https://jasn.asnjournals.org/content/early/ASN.5908226127 Calcium 9.2 8.6 - 10.3 mg/dL LAB CHEMISTRY METHOD 02/21/2025 6:48 AM EDT [facility] Blood Venous blood specimen / Unknown Venipuncture / Unknown 02/21/2025 5:37 AM EDT 02/21/2025 6:12 AM EDT us Loi Golden MD LAB BLOOD ORDERABLES Final Result [facility] [address] [place] [address] * (ABNORMAL) POCT GLUCOSE (02/20/2025 8:20 PM EDT) POCT Glucose 160(H) 74 - 99 mg/dL 02/20/2025 8:21 PM EDT [facility] Blood Capillary blood specimen / Unknown 02/20/2025 8:20 PM EDT 02/20/2025 8:21 PM EDT Lizbet Aguirre MD LAB POINT OF CARE TE ST DOCKED DEVICE UNSOLICITED RESULTS Final Result Performing Organization Address [facility] Co de Phone Number [facility] [address] [place] [address] * (ABNORMAL) POCT GLUCOSE (02/20/2025 3:37 PM EDT) [facility] POCT Glucose 178(H) 74 - 99 mg/dL 02/20/2025 3:38 PM EDT [facility] Blood Capillary blood specimen / Unknown 02/20/2025 3:37 PM EDT 02/20/2025 3:38 PM EDT us Lizebt Aguirre MD LAB POINT OF CARE TE ST DOCKED DEVICE UNSOLICITED RESULTS Final Result Performing Organization Address [facility] Co de Phone Number [facility] [address] [place] [phone] * (ABNORMAL) POCT GLUCOSE (02/20/2025 11:04 AM EDT) [facility] POCT Glucose 268(H) 74 - 99 mg/dL 02/20/2025 11:06 AM EDT [facility] Blood Capillary blood specimen / Unknown 02/20/2025 11:04 AM EDT 02/20/2025 11:06 AM EDT us Lizbet Aguirre MD LAB POINT OF CARE TE ST DOCKED DEVICE UNSOLICITED RESULTS Final Result Performing Organization Address [facility] Co de Phone Number [facility] [address] [place] [id number] * TRANSTHORACIC ECHO (TTE) COMPLETE WITH CONTRAST (02/20/2025 9:52 AM EDT) [facility] AV mn grad 5 mmHg SYNGO AV [...] Narrative SYNGO - 02/20/2025 1:57 PM EDT [place] [id number] TRANSTHORACIC ECHOCARDIOGRAM REPORT Patient Name: DAVID TAPIA Reading Physician: [id number] Fabien Davidson MD, [facility] Study Date: 02/20/2025 Ordering Provider: [id number] LOI GOLDEN MRN/PID: [id number] Fellow: Nurse: Date of /Age: 1 1965 / 59 years [employer]ile Driving Nozzleman: Eliazar Christianson RDCS, RVT Gender Assigned at Additional Staff: : Height: 180.34 cm Admit Date: 02/19/2025 Weight: 90.27 kg Admission Status: Inpatient - Routine BSA / BMI: 2.10 m2 / 27.76 Department Location: [address] [place] [address] kg/m2 Blood Pressure: 129 /73 mmHg Study Type: TRANSTHORACIC ECHO (TTE) COMPLETE Diagnosis/ICD: Chronic systolic (congestive) heart failure (CHF)-I50.22 Indication: chronic systolic heart failure CPT Codes: Echo Complete w Full [id number] Patient History: Pertinent History: CHF, CAD, HTN, [...] to the previous echocardiogram(s): Previous echocardiogram and [facility] 12/2024 reported an LVEF 45%. CONCLUSIONS: 1. [...] less than 50%. 13. Previous echocardiogram and [facility] 12/2024 reported an LVEF 45%. 14. A [...] LA Area A2C: 14.4 cm2 LA Major [place] A4C: 5.8 cm LA Major [place] A2C: 5.5 cm RIGHT ATRIUM: Normal Ranges: [...] Boby: 1.50 PulmV Sys Boby: 54.10 cm/s [id number] Fabien Davidson MD, [facility] Electronically signed on 02/20/2025 at 1:57:28 PM Final Procedure Note Fabien Davidson MD - 02/20/2025 [place] [id number] TRANSTHORACIC ECHOCARDIOGRAM REPORT Patient Name: DAVID TAPIA Reading Physician: [id number] Davidson MD,[facility] Study Date: 02/20/2025 Ordering Provider: [id number] GOLDEN MRN/PID: [id number] Fellow: Nurse: Date of /Age: 1 1965 / 59 years Pile Driving Nozzleman: Rosi HARDING, RVT Gender Assigned at M Additional Staff: : Height: 180.34 cm Admit Date: 02/19/2025 Weight: 90.27 kg Admission Status: Inpatient- Routine BSA / BMI: 2.10 m2 / 27.76 Department Location: [address] [place] [address]/ Blood Pressure: 129 /73 mmHg Study Type: TRANSTHORACIC ECHO (TTE) COMPLETE Diagnosis/ICD: Chronic systolic (congestive) heart failure (CHF)-I50.22 Indication: chronic systolic heart failure CPT Codes: Echo Complete w Full Doppler-[id number] Patient History: Pertinent History: CHF, CAD, HTN, [...] comparison to the previous echocardiogram(s): Previous echocardi[facility] 12/20[facility] reported an LVEF 45%. CONCLUSIONS: 1. [...] less than 50%. 13. Previous echocardiogram and [facility] 12/2024 reported an LVEF 45%. 14. A [...] LA Area A2C: 14.4 cm2 LA [place] A4C: 5.8 cm LA Major [place] A2C: 5.5 cm RIGHT ATRIUM: Normal Ranges: [...] Boby: 1.50 PulmV Sys Boby: 54.10 cm/s [id number] Fabien Davidson MD, [facility] Electronically signed on 02/20/2025 at 1:57:28 PM Final us Loi Golden MD CV ECHO PROCEDURES Final Re sult SYNGO * (ABNORMAL) POCT GLUCOSE (02/20/2025 6:51 AM EDT) POCT Glucose 222(H) 74 - 99 mg/dL 02/20/2025 6:52 AM EDT [facility] Blood Capillary blood specimen / Unknown 02/20/2025 6:51 AM EDT 02/20/2025 6:52 AM EDT us Loi Golden MD LAB POINT OF CARE T EST DOCKED DEVICE UNSOLICITED RESULTS Final Result Performing Organization Address City/[facility]/ZIP Co de Phone Number [facility] [address] [place] [address] * (ABNORMAL) POCT GLUCOSE (02/20/2025 2:54 AM EDT) POCT Glucose 203(H) 74 - 99 mg/dL 02/20/2025 2:55 AM EDT [facility] Blood Capillary blood specimen / Unknown 02/20/2025 2:54 AM EDT 02/20/2025 2:55 AM EDT Loi Golden MD LAB POINT OF CARE T EST DOCKED DEVICE UNSOLICITED RESULTS Final Result Performing Organization Address [facility] Co de Phone Number [facility] [address] [place] [phone] * CT angio chest for pulmonary embolism (02/19/2025 11:51 PM EDT) Anatomical Region Laterality Modality Thoracic, Chest Computed Tomogra phy 02/20/2025 12:4 7 AM EDT 02/20/2025 12:47 AM EDT Impressions 02/20/2025 12:45 AM EDT No pulmonary embolism or acute cardiopulmonary process. Mild bibasilar dependent atelectasis. Mild emphysema. MACRO: None Signed by: iDvina James 02/20/2025 12:45 AM Dictation workstation: [id number] Narrative 02/20/2025 12:45 AM EDT Interpreted By: Divina James, STUDY: CT ANGIO CHEST FOR PULMONARY EMBOLISM; 02/19/2025 11:51 pm INDICATION: Signs/Symptoms:c/f PE. COMPARISON: None. ACCESSION NUMBER(S): [id number] ORDERING CLINICIAN: DAVE JUNIOR TECHNIQUE: Axial CT [...] visualized abdomen. BONES: No acute osseous abnormality. [id number] diffuse degenerative disc changes. Procedure Note Divina James MD - 02/20/2025 Interpreted By: Divina James, STUDY: CT ANGIO CHEST FOR PULMONARY EMBOLISM; 02/19/2025 11:51 pm INDICATION: Signs/Symptoms:c/f PE. COMPARISON: None. ACCESSION NUMBER(S): [id number] ORDERING CLINICIAN: DAVE JUNIOR TECHNIQUE: Axial CT [...] visualized abdomen. BONES: No acute osseous abnormality. Kisa-[id number] diffuse degenerative disc changes. IMPRESSION: No pulmonary embolism or acute cardiopulmonary process. Mild bibasilar dependent atelectasis. Mild emphysema. MACRO: None Signed by: Divina James 02/20/2025 12:45 AM Dictation workstation: [id number] Dave Junior MD IM CT PROCEDURES Final Resul t * Troponin, High Sensitivity, 1 Hour (02/19/2025 11:02 PM EDT) Troponin I, High Sensitivity 8 0 - 20 ng/L LAB IMMUNOASSAY METHOD 02/19/2025 11:30 PM EDT [facility] Blood Venous blood specimen / Unknown Venipuncture / Unknown 02/19/2025 11:02 PM EDT 02/19/2025 11:05 PM EDT [facility] - 02/19/2025 11:30 PM EDT Less [...] performed using a different testing methodology at [facility] than at other [facility]. Direct result comparisons should only be made within the same method. us Dave Junior MD LAB BLOOD ORDERABLES Final Re sult [facility] [address] [place] [address] * (ABNORMAL) CBC and Auto Differential (02/19/2025 10:04 PM EDT) WBC 7.8 4.4 - 11.3 x10*3/uL LAB HEMATOLOGY METHOD 02/19/2025 10:27 PM EDT [facility] nRBC 0.0 0.0 - 0.0 /100 WBCs LAB HEMATOLOGY METHOD 02/19/2025 10:27 PM EDT [facility] RBC 4.31(L) 4.50 - 5.90 x10*6/uL LAB HEMATOLOGY METHOD 02/19/2025 10:27 PM EDT [facility] Hemoglobin 13.3(L) 13.5 - 17.5 g/dL LAB HEMATOLOGY METHOD 02/19/2025 10:27 PM EDT [facility] Hematocrit 39.1(L) 41.0 - 52.0 % LAB HEMATOLOGY METHOD 02/19/2025 10:27 PM [facility] MCV 91 80 - 100 fL LAB HEMATOLOGY METHOD 02/19/2025 10:27 PM [facility] MCH 30.9 26.0 - 34.0 pg LAB HEMATOLOGY METHOD 02/19/2025 10:27 PM [facility] MCHC 34.0 32.0 - 36.0 g/dL LAB HEMATOLOGY METHOD 02/19/2025 10:27 PM [facility] RDW 16.6(H) 11.5 - 14.5 % LAB HEMATOLOGY METHOD 02/19/2025 10:27 PM [facility] Platelets 113(L) 150 - 450 x10*3/uL LAB HEMATOLOGY METHOD 02/19/2025 10:27 PM [facility] Neutrophils % 72.5 40.0 - 80.0 % LAB HEMATOLOGY METHOD 02/19/2025 10:27 PM [facility] Immature Granulocytes %, Automated 0.3 0.0 - 0.9 % LAB HEMATOLOGY METHOD 02/19/2025 10:27 PM [facility] Comment:Immature Granulocyte Count (IG) includes promyelocytes, myelocytes and metamyelocytes but does not include bands. Percent differential counts (%) should be interpreted in the context of the absolute cell counts (cells/UL). Lymphocytes % 18.4 13.0 - 44.0 % LAB HEMATOLOGY METHOD 02/19/2025 10:27 PM [facility] Monocytes % 7.4 2.0 - 10.0 % LAB HEMATOLOGY METHOD 02/19/2025 10:27 PM [facility] Eosinophils % 0.9 0.0 - 6.0 % LAB HEMATOLOGY METHOD 02/19/2025 10:27 PM [facility] Basophils % 0.5 0.0 - 2.0 % LAB HEMATOLOGY METHOD 02/19/2025 10:27 PM [facility] Neutrophils Absolute 5.67 1.20 - 7.70 x10*3/uL LAB HEMATOLOGY METHOD 02/19/2025 10:27 PM [facility] Comment:Percent differential counts (%) should be interpreted in the context of the absolute cell counts (cells/uL). Immature Granulocytes Absolute, Automated 0.02 0.00 - 0.70 x10*3/uL LAB HEMATOLOGY METHOD 02/19/2025 10:27 PM EDT [facility] Lymphocytes Absolute 1.44 1.20 - 4.80 x10*3/uL LAB HEMATOLOGY METHOD 02/19/2025 10:27 PM EDT [facility] Monocytes Absolute 0.58 0.10 - 1.00 x10*3/uL LAB HEMATOLOGY METHOD 02/19/2025 10:27 PM EDT [facility] Eosinophils Absolute 0.07 0.00 - 0.70 x10*3/uL LAB HEMATOLOGY METHOD 02/19/2025 10:27 PM EDT [facility] Basophils Absolute 0.04 0.00 - 0.10 x10*3/uL LAB HEMATOLOGY METHOD 02/19/2025 10:27 PM EDT [facility] Blood Venous blood specimen / Unknown Venipuncture / Unknown 02/19/2025 10:04 PM EDT 02/19/2025 10:07 PM EDT Dave Junior MD LAB BLOOD ORDERABLES Final Re sult [facility] [address] [place] [address] * Troponin I, High Sensitivity, Initial (02/19/2025 10:04 PM EDT) Pathologist [facility] Troponin I, High Sensitivity 9 0 - 20 ng/L LAB IMMUNOASSAY METHOD 02/19/2025 10:58 PM EDT [facility] Blood Venous blood specimen / Unknown Venipuncture / Unknown 02/19/2025 10:04 PM EDT 02/19/2025 10:07 PM EDT Narrative [facility] - 02/19/2025 10:58 PM EDT Less [...] performed using a different testing methodology at [facility] than at other [facility]. Direct result comparisons should only be made within the same method. Dave Junior MD LAB BLOOD ORDERABLES Final Re sult Performing Organization Address City/[facility]/ZIP Co de Phone Number [facility] [address] [place] [address] * (ABNORMAL) B-Type Natriuretic Peptide (02/19/2025 10:04 PM EDT) BNP 240(H) 0 - 99 pg/mL LAB IMMUNOASSAY METHOD 02/19/2025 10:55 PM EDT [facility] Blood Venous blood specimen / Unknown Venipuncture / Unknown 02/19/2025 10:04 PM EDT 02/19/2025 10:07 PM EDT [facility] - 02/19/2025 10:55 PM EDT <100 pg/mL - Heart failure unlikely 100-299 pg/mL - Intermediate probability of acute heart failure exacerbation. Correlate with clinical context and patient history. >=300 pg/mL - Heart Failure likely. Correlate with clinical context and patient history. BNP testing is performed using different testing methodology at [facility] than at other [facility]. Direct result comparisons should only be made within the same method. Dave Junior MD LAB BLOOD ORDERABLES Final Re sult Performing Organization Address [facility]/ZIP Co de Phone Number [facility] [address] [place] [address] * Magnesium (02/19/2025 10:04 PM EDT) Pathologist [facility] Magnesium 1.93 1.60 - 2.40 mg/dL LAB CHEMISTRY METHOD 02/19/2025 10:50 PM EDT [facility] Blood Venous blood specimen / Unknown Venipuncture / Unknown 02/19/2025 10:04 PM EDT 02/19/2025 10:07 PM EDT Dave Junior MD LAB BLOOD ORDERABLES Final Re sult Performing Organization Address [facility] Co de Phone Number [facility] [address] [place] [address] * (ABNORMAL) Lactate (02/19/2025 10:04 PM EDT) Lactate 2.5(H) 0.4 - 2.0 mmol/L LAB CHEMISTRY METHOD 02/19/2025 10:49 PM EDT [facility] Blood Venous blood specimen / Unknown Venipuncture / Unknown 02/19/2025 10:04 PM EDT 02/19/2025 10:07 PM EDT [place] [facility] - 02/19/2025 10:49 PM EDT Venipuncture immediately after or during the administration of Metamizole may lead to falsely low results. Testing should be performed immediately prior to Metamizole dosing. us Dave Junior MD LAB BLOOD ORDERABLES Final Re sult Performing Organization Address [facility] Co de Phone Number [facility] [address] [place] [address] * (ABNORMAL) Hemoglobin A1c (02/19/2025 10:04 PM EDT) Hemoglobin A1C 7.7(H) See comment % 025 11:36 AM EDT [facility] Estimated Average Glucose 174 Not Established mg/dL 02/20/2025 11:36 AM EDT [facility] Blood Venous blood specimen / Unknown Venipuncture / Unknown 02/19/2025 10:04 PM EDT 02/19/2025 10:07 PM EDT Narrative [facility] - 02/20/2025 11:36 AM EDT Diagnosis of Diabetes-Adults Non-Diabetic: < or = 5.6% Increased risk for developing diabetes: 5.7-6.4% Diagnostic of diabetes: > or = 6.5% us Loi Golden MD LAB BLOOD ORDERABLES Final Result [facility] [address] [address] [place] [address] * (ABNORMAL) Comprehensive Metabolic Panel (02/19/2025 10:04 PM EDT) [facility] Glucose 298(H) 74 - 99 mg/dL LAB CHEMISTRY METHOD 02/19/2025 10:50 PM EDT [facility] Sodium 141 136 - 145 mmol/L LAB CHEMISTRY METHOD 02/19/2025 10:50 PM T [facility] Potassium 4.1 3.5 - 5.3 mmol/L LAB CHEMISTRY METHOD 02/19/2025 10:50 PM [facility] Chloride 111(H) 98 - 107 mmol/L LAB CHEMISTRY METHOD 02/19/2025 10:50 PM [facility] Bicarbonate 22 21 - 32 mmol/L LAB CHEMISTRY METHOD 02/19/2025 10:50 PM T [facility] Anion Gap 12 10 - 20 mmol/L LAB CHEMISTRY METHOD 02/19/2025 10:50 PM [facility] Urea Nitrogen 35(H) 6 - 23 mg/dL LAB CHEMISTRY METHOD 02/19/2025 10:50 PM [facility] Creatinine 1.51(H) 0.50 - 1.30 mg/dL LAB CHEMISTRY METHOD 02/19/2025 10:50 PM [facility] eGFR 52(L) >60 mL/min/1. 73m*2 LAB CHEMISTRY METHOD 02/19/2025 10:50 PM [facility] Comment: Calculations of estimated GFR are performed using the 2020 CKD-EPI Study Refit equation without the race variable for the IDMS-Traceable creatinine methods. https://jasn.asnjournals.org/content//ASN.1481497927 Calcium 9.1 8.6 - 10.3 mg/dL LAB CHEMISTRY METHOD 02/19/2025 10:50 PM EDT [facility] Albumin 4.2 3.4 - 5.0 g/dL LAB CHEMISTRY METHOD 02/19/2025 10:50 PM EDT [facility] Alkaline Phosphatase 126 33 - 136 U/L LAB CHEMISTRY METHOD 02/19/2025 10:50 PM EDT [facility] Total Protein 6.3(L) 6.4 - 8.2 g/dL LAB CHEMISTRY METHOD 02/19/2025 10:50 PM EDT [facility] AST 13 9 - 39 U/L LAB CHEMISTRY METHOD 02/19/2025 10:50 PM EDT [facility] Bilirubin, Total 1.1 0.0 - 1.2 mg/dL LAB CHEMISTRY METHOD 02/19/2025 10:50 PM EDT [facility] ALT 20 10 - 52 U/L LAB CHEMISTRY METHOD 02/19/2025 10:50 PM EDT [facility] Comment:Patients treated wit h Sulfasalazine may generate falsely decreased results for ALT. Blood Venous blood specimen / Unknown Venipuncture / Unknown 02/19/2025 10:04 PM EDT 02/19/2025 10:07 PM EDT Dave Junior MD LAB BLOOD ORDERABLES Final Re sult [facility] [address] [place] [address] * Sars-CoV-2 and Influenza A/B PCR (02/19/2025 10:01 PM EDT) Flu A Result Not Detected Not Detected X_PERT XPRESS SARS-COV2 _CEPHEID_ EUA 02/19/2025 10:47 PM EDT [facility] Flu B Result Not Detected Not Detected X_PERT XPRESS SARS-COV2 _CEPHEID_ EUA 02/19/2025 10:47 PM EDT [facility] Coronavirus 2019, PCR Not Detected Not Detected X_PERT XPRESS SARS-COV2 _CEPHEID_ EUA 02/19/2025 10:47 PM EDT [facility] Swab Nasopharyngeal swab / Unknown 02/19/2025 10:01 PM EDT 02/19/2025 10:07 PM EDT Narrative [facility] - 02/19/2025 10:47 PM EDT This assay is an FDA-cleared, in vitro diagnostic nucleic acid amplification test for the qualitative detection and differentiation of SARS CoV-2/ Influenza A/B from nasopharyngeal specimens collected from individuals with signs and symptoms of respiratory tract infections, and has been validated for use at [facility]. Negative results do not preclude COVID-19/ Influenza A/B infections and should not be used as the sole basis for diagnosis, treatment, or other management decisions. Testing for SARS CoV-2 is recommended only for patients who meet current clinical and/or epidemiological criteria defined by federal, state, or local public health directives. Dave Junior MD LAB MOLECULAR DIAGNOSTICS ORD ERABLES Final Result Performing Organization Address [facility]/ZIP Co de Phone Number [facility] [address] [place] [address] * Light Blue Top (02/19/2025 10:01 PM EDT) Extra Tube Hold for add-ons. 02/22/2025 8:22 AM EDT [facility] Comment:Auto resulted. Blood Venous blood specimen / Unknown 02/19/2025 10:01 PM EDT 02/19/2025 10:07 PM EDT Dave Junior MD LAB BLOOD ORDERABLES Final Re sult Performing Organization Address [facility]/ZIP Co de Phone Number [facility] [address] [place] [address] from Last 3 Months Insurance [facility] Member Subscriber Plan / Payer (Ef fective 2023-Present) Name:David Tapia Relation to Subscriber:Self Name:David Tapia Payer ID:[id number] (NAIC) Type:Not on file Address: [address] [place] [id number] [facility] Advance Directives For more information, please contact: [phone] (Available ) * Full Code (Latest Code Status on File) Date Activated Date Inactivated Comments 02/20/2025 2:13 AM Question Answer Comments Plan of Care: Code Status Discussion Not Compl eted Decision Maker: Provider Rationale: Patient condition does not warra nt discussion Care Teams Tip Finisher Relationship Specialty Start Date End Date Winston Paul DO [address] [place] [facility] [address] [place] [address] PCP - General Family Medicine 02/19/25
--- OUTSIDE RECORDS SUMMARY | 2025-03-07 09:30 | XMS_ITS | Encounter Summary ---
Author Organization [facility] Address [address] [place] [address] Care Team Providers Care Vocal Teacher Name Role Phone Unavailable Primary Care Provider Unavailabl e Encounter Details Date Type Department Care Team (Late st Contact Info) Description 11/23/2020 Transcribe Orders Elaina Fernandez Pre Access [address] [place] [address] Winston Paul, DO [address] [place] [address] Disease of presumed infectious origin (Primary Dx) Social History Tobacco Use Types Packs/Day Years Used Date Smoking Tobacco: Never Assessed Sex and Gender Information Value Date Recorded Sex Assigned at Not on file Legal Sex Male 3:04 PM EDT Gender Identity Not on file Sexual Orientation Not on file documented as of this encounter Plan of Treatment Not on file documented as of this encounter Visit Diagnoses Diagnosis Disease of presumed infectious origin- Primary Unspecified infectious and parasitic diseases documented in this encounter
--- OUTSIDE RECORDS SUMMARY | 2025-03-07 09:30 | XMS_ITS | Clinical Summary ---
Author Organization [facility] Address [address] [place] [address] Care Team Providers Care Civil Service Clerk Name Role Phone Unavailable Primary Care Provider Unavailabl e Social History Tobacco Use Types Packs/Day Years Used Date Smoking Tobacco: Never Assessed Sex and Gender Information Value Date Recorded Sex Assigned at Not on file Legal Sex Male 3:04 PM EDT Gender Identity Not on file Sexual Orientation Not on file Plan of Treatment Not on file Insurance [place]
--- OUTSIDE RECORDS SUMMARY | 2025-03-07 09:30 | XMS_ITS | Clinical Summary ---
Author Organization [facility] Address [address] [place] [address] Care Team Providers Care Decontamination Technician Name Role Phone Winston Paul DO Unavailable [phone] Allergies No known active allergies Medications Ibuprofen 200 mg cap Take by mouth. Active Active Problems Problem Noted Date Diagnosed Date Thrombocytopenia 06/20/2012 Encounters Date Type Department Care Team Description 02/12/2025 Telephone Preventive Cardiology [address] [place] [address] [id number] Jeffery Young MD 02/12/2025 Orders Only Preventive Cardiology [address] [address] Bibiana Bateman MD Thrombocytopenia (Primary Dx) 02/11/2025 Telephone Referring Physician [address] [place] [phone] (Historical), No One External Referrals/resources 02/11/2025 Transcribe Orders Referring Physician [address] [place] [phone] Winston Paul DO Coronary artery disease involving [place] coronary artery of [place] heart, unspecified whether angina present (Primary Dx); Stented coronary artery; Thrombocytopenia from Last 3 Months Social History Tobacco Use Types Packs/Day Years Used Date Smoking Tobacco: Every Day Cigarettes 1 30 Smokeless Tobacco: Never Alcohol Use Standard Drinks/Week Comments Not Asked 0 (1 standard drink = 0.6 oz pur e alcohol) Sex and Gender Information Value Date Recorded Sex Assigned at Not on file Legal Sex Male 10:17 AM EST Gender Identity Not on file Sexual Orientation Not on file Last Filed Vital Signs Vital Sign Reading Time Taken Comments Blood Pressure 158/88 06/20/2012 10:51 AM EDT Pulse 77 06/20/2012 10:51 AM EDT Temperature - - Respiratory Rate - - Oxygen Saturation - - Inhaled Oxygen Concentration - - Weight 112.2 kg (247 lb 6.4 oz) 012 10:51 AM EDT Height - - Body Mass Index - - Plan of Treatment Upcoming Encounters Date Type Department Care Team (Latest Contact Info) Description 08/10/2025 8:00 AM EST Office Visit Cardiology [address] [id number] Dx: stented coronary artery CAD in [place] artery , type 2 diabetes melitis; thrombocytopenia 08/10/2025 8:15 AM EST Procedure Cardiology [address] [id number] Dx: stented coronary artery CAD in [place] artery , type 2 diabetes melitis; thrombocytopenia 08/10/2025 8:45 AM EST Office Visit Preventive Cardiology [address] [place] [address] Bibiana Bateman MD [address] [place] [address] Dx: stented coronary artery CAD in [place] artery , type 2 diabetes melitis; thrombocytopenia Health Maintenance Due Date Last Done Comments Anxiety Screening 1981 Depression Screening 1981 HIV Screening 1981 Hepatitis C Screening 1981 DTaP,Tdap,Td Vaccine (1 - Tdap) [address] Colonography 2008 Cologuard (FIT-DNA) 2008 Colonoscopy 2008 Colorectal Cancer Screening 2008 Diabetes Screening 2008 Fecal Occult Blood 2008 Prostate Cancer Screening Discussion 2008 Sigmoidoscopy 2008 Pneumococcal Vaccine: 50+ (1 of 1 - PCV) 2013 Shingrix Vaccine (1 of 2) 2013 Covid-19 Vaccine (1 - 2023- season) 2024 Influenza Vaccine (#1) 2025 RSV Vaccine (1 - 1-dose 75+ series) 2038 Insurance BLUE CARD PPO OOS Care Teams Decontamination Technician Relationship Specialty Start Date End Date Winston Paul DO [address] [place] [address] Referring Family Medicine 02/11/25
--- OUTSIDE RECORDS SUMMARY | 2025-03-07 09:30 | XMS_ITS | Continuity of Care Document ---
Author Organization [facility]. Address [address] [place] [id number] Phone [phone] Care Team Providers Care Environmental Change Analyst Name Role Phone Winston Paul DO Care Team Information Peer Support Specialist [phone] Assessments Date Code Description Provider 01/12/2025 N17.9 Acute kidney failure, unspec ified RICH Siegel 01/12/2025 E11.22 Type 2 diabetes mellitus with diabetic chronic kidney disease RICH Siegel 01/12/2025 I10 Essential (primary) hyperten maxwell RICH Siegel 01/12/2025 R07.9 Chest pain, unspecified RICH Venegas
--- NOTE | 2025-03-07 09:43 | ED.GENADUL1 ---
HPI HPI - General Adult General Chief complaint: Epistaxis Stated complaint: NOSE PACKING REMOVAL Time Seen by Provider: 03/07/25 09:29 Source: patient Mode of arrival: walk-in Limitations: no limitations History of Present Illness HPI narrative: 59-year-old male presents to the emergency department as instructed to have nasal packing removed. He had it placed here 3 days ago and he has had no problems. He is taking his antibiotic. He has had no bleeding. Related Data Home Medications ?Medication ?Instructions ?Recorded ?Confirmed albuterol sulfate 90 mcg/actuation 2 puff inhalation Q6H PRN 03/04/25 03/04/25 aerosol inhaler shortness of breath or wheezing aspirin 81 mg tablet,delayed 81 mg PO DAILY 03/04/25 03/04/25 release atorvastatin 80 mg tablet 80 mg PO QPM 03/04/25 03/04/25 carvedilol 3.125 mg tablet 3.125 mg PO BID 03/04/25 03/04/25 clopidogrel 75 mg tablet 75 mg PO DAILY 03/04/25 03/04/25 hydralazine 25 mg tablet 25 mg PO BID 03/04/25 03/04/25 ipratropium 20 mcg-albuterol 100 2 puff inhalation Q6H PRN 03/04/25 03/04/25 mcg/actuation mist for inhalation shortness of breath or wheezing (Combivent Respimat) isosorbide mononitrate 30 mg 30 mg PO DAILY 03/04/25 03/04/25 tablet,extended release 24 hr nifedipine 60 mg tablet,extended 60 mg PO DAILY 03/04/25 03/04/25 release 24 hr pantoprazole 40 mg tablet,delayed 40 mg PO DAILY 03/04/25 03/04/25 release sacubitril 24 mg-valsartan 26 mg 1 tab PO BID 03/04/25 03/04/25 tablet (Entresto) spironolactone 25 mg tablet 12.5 mg PO DAILY 03/04/25 03/04/25 tiotropium bromide 2.5 2 puff inhalation DAILY 03/04/25 03/04/25 mcg/actuation mist for inhalation (Spiriva Respimat) Previous Rx's ?Medication ?Instructions ?Recorded amoxicillin 500 mg capsule 500 mg PO TID 3 days #9 caps 03/04/25 Allergies Allergy/AdvReac Type Severity Reaction Status Date / Time No Known Drug Allergies Allergy Verified 03/04/25 10:02 Review of Systems ROS Narrative A ten point review of systems is negative except as noted above. PFSH [facility] Medical History (Updated 03/07/25 @ 09:48 by Tj Chong MD) CHF (congestive heart failure) ?I50.9 - Heart failure, unspecified (ICD-10) Epistaxis ?R04.0 - Epistaxis (ICD-10) Myocardial infarct ?I21.9 - Acute myocardial infarction, unspecified (ICD-10) GERD (gastroesophageal reflux disease) ?K21.9 - Gastro-esophageal reflux disease without esophagitis (ICD-10) Emphysema lung ?J43.9 - Emphysema, unspecified (ICD-10) COPD (chronic obstructive pulmonary disease) ?J44.9 - Chronic obstructive pulmonary disease, unspecified (ICD-10) Surgical History (Updated 03/04/25 @ 10:14 by Jess Smith) H/O heart artery stent ?Z95.5 - Presence of coronary angioplasty implant and graft (ICD-10) Social History Little interest or pleasure in doing things: not at all Feeling down, depressed, or hopeless: not at all Exam Narrative Exam Narrative: Nurses note and vital signs reviewed and patient is not hypoxic. General: The patient appears well and in no apparent distress. Patient is resting comfortably on cart. Skin: Warm, dry, no pallor noted. There is no rash noted. Head: Normocephalic, atraumatic Eye: Normal conjunctiva, no drainage Ears, Nose, Mouth, and Throat: oral mucosa is moist. Nares patent. Mouth without vesicles. Ear canals patent. Tm's without Erythema Cardiovascular: Regular Rate and Rhythm Respiratory: Patient is in no distress, no accessory muscle use, lungs are clear to auscultation, no wheezing, rales or rhonchi Back: non-tender, no CVA tenderness bilaterally to percussion. GI: Normal bowel sounds, no tenderness to palpation, no masses appreciated. No rebound, guarding, or rigidity noted. Musculoskeletal: The patient has no evidence of calf tenderness, no pitting edema, symmetrical pulses noted bilaterally Neurological: A&O x4, normal speech Psychiatric: Cooperative Constitutional Vital Signs, click to edit/add: Last Vital Signs Temp 98.3 F 03/07/25 09:19 Pulse 71 03/07/25 09:19 Resp 18 03/07/25 09:19 BP 181/93 H 03/07/25 09:19 Pulse Ox 95 03/07/25 09:19 O2 Del Method Room Air 03/07/25 09:19 Course Vital Signs Vital signs: Vital Signs Temperature 98.3 F 03/07/25 09:19 Pulse Rate 71 03/07/25 09:19 Respiratory Rate 18 03/07/25 09:19 Blood Pressure 181/93 H 03/07/25 09:19 Pulse Oximetry 95 03/07/25 09:19 Oxygen Delivery Method Room Air 03/07/25 09:19 Temperature 98.3 F 03/07/25 09:19 Pulse Rate 71 03/07/25 09:19 Respiratory Rate 18 03/07/25 09:19 Blood Pressure 181/93 H 03/07/25 09:19 Pulse Oximetry 95 03/07/25 09:19 Oxygen Delivery Method Room Air 03/07/25 09:19 Medical Decision Making MDM Narrative Medical decision making narrative: I have removed his nasal packing and he had no further epistaxis and he is discharged home. Findings were discussed with the patient. Differential Diagnosis Differential Diagnosis: Packing removal, nosebleed Discharge Plan Discharge Chief Complaint: Epistaxis Clinical Impression: Encounter for removal of nasal packing Patient Disposition: Home, Self-Care Time of Disposition Decision: 09:48 Condition: Good Mode of Transportation: Private Vehicle Prescriptions / Home Meds: No Action albuterol sulfate 90 mcg/actuation HFA aerosol inhaler 2 puff INHALATION Q6H PRN (Reason: shortness of breath or wheezing) aspirin 81 mg tablet,delayed release (DR/EC) 81 mg PO DAILY atorvastatin 80 mg tablet 80 mg PO QPM carvedilol 3.125 mg tablet 3.125 mg PO BID clopidogrel 75 mg tablet 75 mg PO DAILY hydralazine 25 mg tablet 25 mg PO BID Combivent Respimat 20-100 mcg/actuation mist 2 puff INHALATION Q6H PRN (Reason: shortness of breath or wheezing) isosorbide mononitrate 30 mg tablet extended release 24 hr 30 mg PO DAILY nifedipine 60 mg tablet extended release 24hr 60 mg PO DAILY pantoprazole 40 mg tablet,delayed release (DR/EC) 40 mg PO DAILY Entresto 24-26 mg tablet 1 tab PO BID spironolactone 25 mg tablet 12.5 mg PO DAILY Spiriva Respimat 2.5 mcg/actuation mist 2 puff INHALATION DAILY amoxicillin 500 mg capsule 500 mg PO TID 3 Days Qty: 9 0RF Print Language: Slovenian Instructions: Nosebleed (ED) Referrals: RUPERT MARSHALL [Primary Care Provider, Family Practice] - 1 week
[2025-03-07 09:56] VITALS: BP 156/92; PULSE 98; O2SAT 95
== END 2025-03-07 09:56 | disposition home or self-care (01) ==
PROVIDERS: Emergency Provider Emergency Medicine; PCP Family Medicine
DX: Z48.00 Encounter for change or removal of nonsurgical wound dressing (principal); Z95.5 Presence of coronary angioplasty implant and graft
CPT/HCPCS: 99281